=== PATIENT | male | born 1955 | race Asian ===

== ENCOUNTER 2019-02-10 14:20 | Inpatient (IN) | payer BC, OTHER ==
[~2019-02-10] VITALS: Ht 175.3 cm; Wt 120.0 kg
--- NOTE | 2019-02-10 15:09 | NUR ---
TRANSFER FOR ORTHO EVALUATION (SURGERY) PATIENT REPORTS GLF 4 DAYS AGO WITH RESULTING DEFORMITY TO RIGHT WRSIT/ELBOW PRESENTED TODAY FOR EVALUATION SENDING HOSPITAL PERFORMED PLACED SPLINT. BASIC LABS/PLACED 2 PIVS/GAVE 2 GM OF ANCEF- EMS GAVE 2MG OF MORPHINE IN DEVIDED DOSES CMS INTACT. ABLE TO WIGGLE FINGERS/RADIAL PULSE INTACT. REPORTS SENSORY 4/5 DRESSING TAKEN DOWN. EXPOSED BONE TO MEDIAL WRIST NOTED. BLEEDING CONTROLLED BRUSING FROM ELBOW TO WRIST. COMPARTMENTS SOFT. AFTER PHARMACY CUSTOMER CARE SPECIALIST/MD MEDINA. FOREARM SPLINT REPLACED AND GENTLY WRAPPED WITH ROBB WRAP
[2019-02-10] MEDS ORDERED: DIPHTHERIA-TETANUS ADULT 0.5ML IM-VACC ONE (15:30)
[2019-02-10] MEDS ORDERED: GENTAMICIN PER PHARMACY MC ONE (15:30)
[2019-02-10] MEDS ORDERED: MORPHINE SULFATE 4 MG/ML, 1ML IVPush PRN (15:30)
[2019-02-10] MEDS ORDERED: ONDANSETRON 2MG/ML, 2ML IVPush ONE (15:30)
[2019-02-10] MEDS ORDERED: PLEASE ENTER ALLERGIES MC SCH (15:30)
[2019-02-10] MEDS ORDERED: ONDANSETRON 2MG/ML, 2ML ONE (15:41)
[2019-02-10] MEDS ORDERED: MORPHINE SULFATE 4 MG/ML, 1ML ONE (15:42)
[2019-02-10] MEDS ORDERED: DIPH,PERTUSS(ACELL),TET VAC/PF 0.5 ML IM-VACC ONE (15:42)
--- NOTE | 2019-02-10 15:44 | NUR ---
XRAY AT BEDSIDE- [facility] EXAM UNCHANGED MEDICATED PER EMAR FOR PAIN AT 10/10 TO RUE
--- NOTE | 2019-02-10 15:45 | NUR ---
TDAP DEFERRED-HAD TDAP EARLIER THIS M[facility]ING AT [facility] REQUEST[facility] FROM PHARMACY
[2019-02-10 15:52] LABS: BASOPHILS # (AUTO) 0.02 x10^3/uL (0-0.1); BASOPHILS % (AUTO) 0 % (0-1); EOSINOPHILS # (AUTO) 0.19 x10^3/uL (0-0.4); EOSINOPHILS % (AUTO) 5 % (1-7); LYMPHOCYTES # (AUTO) 0.57 x10^3/uL (1-3.4); LYMPHOCYTES % (AUTO) 14 % (22-44); MD NO; MEAN CORPUSCULAR HEMOGLOBIN 32.1 pg (27.5-34.5); MEAN CORPUSCULAR HGB CONC 33.7 g/dL (33.2-36.2); MEAN CORPUSCULAR VOLUME 95.3 fL (81-97); MEAN PLATELET VOLUME 8.7 fL (7.4-10.4); MONOCYTES % (AUTO) 15 % (2-9); NEUTROPHILS # (AUTO) 2.55 x10^3/uL (1.8-6.8); NEUTROPHILS % (AUTO) 65 % (42-75); PLATELET COUNT 205 x10^3/uL (130-400); RED BLOOD COUNT 3.66 x10^6/uL (4.38-5.82); RED CELL DISTRIBUTION WIDTH 13.9 % (9.4-14.8)
[2019-02-10] MEDS ORDERED: ATEN50TA41 PO (15:52)
[2019-02-10] MEDS ORDERED: AMLO10TA8 PO (15:52)
[2019-02-10] MEDS ORDERED: TAMS-11 PO (15:52)
[2019-02-10] MEDS ORDERED: DULO20CA45 PO (15:52)
[2019-02-10] MEDS ORDERED: PREG25CA PO (15:52)
[2019-02-10] MEDS ORDERED: CYCL5TAB PO (15:52)
--- NOTE | 2019-02-10 15:53 | NUR ---
MED RECC UPDATED-PATIENT KNOWS THE NAMES OF LISTED MEDICINES. DAVIDE HE DOES NOT KNOW THE DOSES AND HE REPORT THAT HE MIGHT BE FORGETTING A MED OR TWO REPORTS HIM FILLS HIS MEDS AT THE [facility]
[2019-02-10 15:54] LABS: ANION GAP 8 mmol/L (5-15); CALCIUM 8.7 mg/dL (8.5-10.1); CHLORIDE 107 mmol/L (98-107); CREATININE 0.78 mg/dL (0.7-1.3)
[2019-02-10] MEDS ORDERED: PHARMACOKINETIC CONSULTATION MC ONE ×2 (16:00→19:30)
[2019-02-10] MEDS ORDERED: GENTAMICIN 360 MG in SODIUM CHLORIDE 0.9% 100 ML IV SCH (16:30)
[2019-02-10] MEDS ORDERED: HYDROmorphone 2 MG/ML, 1ML IV ONE (16:30)
[2019-02-10] MEDS ORDERED: SODIUM CHLORIDE 0.9%, 500ML IVBOLUS ONE (16:30)
--- NOTE | 2019-02-10 16:30 | NUR ---
poc clarified with provider (surgery time?) ER Provider has not had return page from orthopedist yet. To re-page Er provider asked for additional pain medicine (pain remains 11/06). no change in CMS exam. [address] as well
[2019-02-10 16:31] LABS: INTERNATIONAL NORMALIZED RATIO 0.98 (0.93-1.1); PROTHROMBIN TIME 10.3 Seconds (9.6-11.5)
[2019-02-10] MEDS ORDERED: POTASSIUM CHLORIDE 20 MEQ in SODIUM CHLORIDE 0.9% 250 ML IV ONE (17:00)
[2019-02-10] MEDS ORDERED: HYDROmorphone 1 MG/ML, 1ML VIAL ONE (17:04)
[2019-02-10] MEDS ORDERED: NS + 20MEQ KCL 1,000 ML IV ONE (17:25)
[2019-02-10] MEDS ORDERED: NS + 20MEQ KCL 1,000 ML IV SCH (17:30)
--- NOTE | 2019-02-10 17:45 | NUR ---
ATTEMPTED TO CALL REPORT. RN UNAVAILABLE
--- NOTE | 2019-02-10 17:59 | NUR ---
Report to Suzette LOVE Last meal yesterday afternoon (02/09/19) at roughly 1500pm Orthopedist called er provider back-to operate later this evening (keep NPO)
[2019-02-10] MEDS ORDERED: MIDAZOLAM 1 MG/ML, 5ML IVPush ONE (18:00)
--- NOTE | 2019-02-10 18:29 | NUR ---
Transported to floor by EMT ivf paused for tranport at [id number] patient's brother at bedside-reports patient also has right lower back pain which (related to fall that caused arm injury). Which he failed to report Will need md clark
[2019-02-10] MEDS ORDERED: VANCOMYCIN PER PHARMACY MC PRN (18:30)
[2019-02-10] MEDS ORDERED: BISACODYL 10 MG SUPP PR PRN (18:30)
[2019-02-10] MEDS ORDERED: ONDANSETRON 2MG/ML, 2ML IVPush PRN (18:30)
[2019-02-10] MEDS ORDERED: ASPI-496 PO (18:43)
[2019-02-10 18:56] VITALS: BP 108/73
[2019-02-10] MEDS ORDERED: VANCOMYCIN 2,500 MG in SODIUM CHLORIDE 0.9% 500 ML IV SCH (19:30)
[2019-02-10] MEDS ORDERED: PHARMACOKINETIC MONITORING MC PRN (19:30)
[2019-02-10] MEDS: NS + 40MEQ KCL 1,000 ML IV SCH (19:51)
[2019-02-10] MEDS: CEFAZOLIN 2,000 MG in SODIUM CHLORIDE 0.9% 50 ML IV SCH (20:04)
[2019-02-10] MEDS ORDERED: IBUP-1902 PO (20:13)
[2019-02-10] MEDS ORDERED: VANCOMYCIN 2,000 MG in SODIUM CHLORIDE 0.9% 500 ML IV SCH (21:00)
[2019-02-10] MEDS ORDERED: MIDAZOLAM 1 MG/ML, 2ML ONE (21:15)
[2019-02-10] MEDS ORDERED: FENTANYL PF 250 MCG/5ML ONE (21:15)
[2019-02-10] MEDS ORDERED: CEFAZOLIN 1,000 MG ONE (21:42)
[2019-02-10] MEDS ORDERED: PROPOFOL 10 MG/ML, 20ML ONE (21:42)
[2019-02-10] MEDS ORDERED: ROCURONIUM 10 MG/ML,10ML ONE (21:42)
[2019-02-10] MEDS ORDERED: ACETAMINOPHEN 325 MG TABLET PO PRN (22:00)
[2019-02-10] MEDS ORDERED: ONDANSETRON 2MG/ML, 2ML IV PRN (22:00)
[2019-02-10] MEDS ORDERED: hydrALAzine 20 MG/ML, 1ML IV PRN (22:00)
[2019-02-10] MEDS ORDERED: HYDROmorphone 2 MG/ML, 1ML IVPush PRN (22:00)
[2019-02-10] MEDS ORDERED: FENTANYL PF 100 MCG/2ML IV PRN (22:00)
[2019-02-10] MEDS ORDERED: LABETALOL 5MG/ML, 20ML IV PRN (22:00)
[2019-02-10] MEDS ORDERED: MEPERIDINE/PF 25MG/ML,1ML IVPush PRN (22:00)
[2019-02-10] MEDS ORDERED: BACITRACIN 50,000 UNIT ONE (22:04)
[2019-02-11] MEDS ORDERED: PROPOFOL 100 ML IV ONE (00:12)
[2019-02-11] MEDS ORDERED: LACTULOSE 20 GM/30 ML UDC NG PRN (00:30)
[2019-02-11] MEDS ORDERED: SENNA 176 MG/5 ML ORAL SOL NG PRN (00:30)
[2019-02-11] MEDS ORDERED: GLUCAGON 1 MG IM PRN (00:30)
[2019-02-11] MEDS ORDERED: DEXTROSE 50%, 50ML SYRINGE IVPush PRN (00:30)
[2019-02-11] MEDS ORDERED: BISACODYL 10 MG SUPP PR PRN (00:30)
[2019-02-11] MEDS ORDERED: LIDOCAINE-MPF 1%, 2ML ENDO PRN (00:30)
[2019-02-11] MEDS ORDERED: PHARMACY MAY ADJ FOR RENAL FX MC SCH (00:30)
[2019-02-11] MEDS ORDERED: DEXTROSE 4 GM TAB.CHEW PO PRN (00:30)
[2019-02-11] MEDS ORDERED: SENNA/DOCUSATE TABLET NG PRN (00:30)
[2019-02-11 01:00] VITALS: BP 130/76
[2019-02-11 01:03] LABS: ALANINE AMINOTRANSFERASE 24 U/L (12-78); ALBUMIN 2.7 g/dL (3.4-5.0); ANION GAP 7 mmol/L (5-15); CALCIUM 8.2 mg/dL (8.5-10.1); CHLORIDE 108 mmol/L (98-107); CREATININE 0.91 mg/dL (0.7-1.3)
[2019-02-11 01:06] LABS: ALKALINE PHOSPHATASE 84 U/L (45-117); BILIRUBIN,TOTAL 0.6 mg/dL (0.2-1.0); TOTAL PROTEIN 6.4 g/dL (6.4-8.2)
[2019-02-11] MEDS ORDERED: OMNIPAQUE 350 MG/ML, 100ML BOTTLE ONE (02:52)
[2019-02-11 03:17] LABS: MEAN CORPUSCULAR HEMOGLOBIN 31.9 pg (27.5-34.5); MEAN CORPUSCULAR HGB CONC 32.7 g/dL (33.2-36.2); MEAN CORPUSCULAR VOLUME 97.6 fL (81-97); MEAN PLATELET VOLUME 9.1 fL (7.4-10.4); PLATELET COUNT 191 x10^3/uL (130-400); RED BLOOD COUNT 3.58 x10^6/uL (4.38-5.82); RED CELL DISTRIBUTION WIDTH 14.4 % (9.4-14.8)
[2019-02-11 03:18] LABS: MD YES
[2019-02-11 03:20] LABS: ANISOCYTOSIS 1+; EOS#(MANUAL) 0.03 x10^3/uL (0.0-0.4); EOS% (MANUAL) 1 % (1-7); LYMPH#(MANUAL) 0.32 x10^3/uL (1-3.4); LYMPHS% (MANUAL) 10 % (22-44); MONOS#(MANUAL) 0.38 x10^3/uL (0.3-2.7); MONOS% (MANUAL) 12 % (2-9); POLYCHROMASIA 1+; SEG#(MANUAL) 2.46 x10^3/uL (1.8-6.8); SEGS% (MANUAL) 77 % (42-75)
[2019-02-11 03:21] LABS: <PLATELET ESTIMATE> ADEQUATE; <PLT MORPHOLOGY> NORMAL PLT MORPH
[2019-02-11 04:00] VITALS: BP 116/69
[2019-02-11] MEDS: PROPOFOL 100 ML IV PRN ×8 (04:31→21:37)
[2019-02-11] MEDS: NS + 40MEQ KCL 1,000 ML IV SCH (04:43)
[2019-02-11] MEDS: CEFAZOLIN 2,000 MG in SODIUM CHLORIDE 0.9% 50 ML IV SCH (04:58)
[2019-02-11] MEDS: MORPHINE SULFATE 4 MG/ML, 1ML IVPush PRN ×2 (04:58→08:52)
[2019-02-11] MEDS ORDERED: POTASSIUM CHLORIDE 10% 40 MEQ/30 ML UDC PO ONE (09:00)
--- NOTE | 2019-02-11 11:58 | NUR ---
TF GOAL if needed: with or without propofol: VITAL HIGH PROTEIN @ 70ML/HR
[2019-02-11] MEDS: POTASSIUM CHLORIDE 20 MEQ, MAGNESIUM SULFATE 1 GM, THIAMINE 200 MG, FOLIC ACID 1 MG, MV... IV SCH (12:30)
[2019-02-11] MEDS: SODIUM CHLORIDE FLUSH 10ML SYR IVF SCH ×2 (12:39→20:18)
[2019-02-11] MEDS: TAMSULOSIN 0.4 MG CAP.ER.24H PO SCH (12:39)
[2019-02-11] MEDS ORDERED: VANCOMYCIN 2,500 MG in SODIUM CHLORIDE 0.9% 500 ML IV ONE (13:00)
[2019-02-11] MEDS ORDERED: PICC FLUSH PROTOCOL XX PRN (16:00)
[2019-02-11] MEDS: DIAZEPAM 5 MG/ML, 2ML IV SCH ×3 (16:30→21:40)
[2019-02-11] MEDS ORDERED: MORPHINE SULFATE 4 MG/ML, 1ML ONE (20:14)
[2019-02-11] MEDS: morphine SULFATE 10 MG/ML, 1ML IVPush PRN (20:18)
[2019-02-12] MEDS: PROPOFOL 100 ML IV PRN ×7 (00:25→17:04)
[2019-02-12] MEDS: DIAZEPAM 5 MG/ML, 2ML IV SCH ×6 (02:03→21:11)
[2019-02-12 04:00] VITALS: BP 125/74
[2019-02-12 04:25] LABS: BASOPHILS # (AUTO) 0.01 x10^3/uL (0-0.1); BASOPHILS % (AUTO) 0 % (0-1); EOSINOPHILS # (AUTO) 0.19 x10^3/uL (0-0.4); EOSINOPHILS % (AUTO) 6 % (1-7); LYMPHOCYTES # (AUTO) 0.46 x10^3/uL (1-3.4); LYMPHOCYTES % (AUTO) 14 % (22-44); MD NO; MEAN CORPUSCULAR HEMOGLOBIN 32.4 pg (27.5-34.5); MEAN CORPUSCULAR HGB CONC 33.3 g/dL (33.2-36.2); MEAN CORPUSCULAR VOLUME 97.3 fL (81-97); MEAN PLATELET VOLUME 8.9 fL (7.4-10.4); MONOCYTES # (AUTO) 0.61 x10^3/uL (0.2-0.8); MONOCYTES % (AUTO) 19 % (2-9); NEUTROPHILS % (AUTO) 61 % (42-75); PLATELET COUNT 185 x10^3/uL (130-400); RED BLOOD COUNT 3.13 x10^6/uL (4.38-5.82); RED CELL DISTRIBUTION WIDTH 14.1 % (9.4-14.8)
[2019-02-12 04:28] LABS: ANION GAP 6 mmol/L (5-15); CHLORIDE 109 mmol/L (98-107); CREATININE 0.56 mg/dL (0.7-1.3)
[2019-02-12] MEDS ORDERED: VANCOMYCIN 2,000 MG in SODIUM CHLORIDE 0.9% 500 ML IV SCH (06:00)
[2019-02-12] MEDS ORDERED: POTASSIUM CHLORIDE 10% 20 MEQ/15 ML UDC PO ONE (07:00)
[2019-02-12] MEDS: TAMSULOSIN 0.4 MG CAP.ER.24H PO SCH (08:01)
[2019-02-12] MEDS: SODIUM CHLORIDE FLUSH 10ML SYR IVF SCH ×2 (08:02→19:14)
[2019-02-12] MEDS: POTASSIUM CHLORIDE 20 MEQ, MAGNESIUM SULFATE 1 GM, THIAMINE 200 MG, FOLIC ACID 1 MG, MV... IV SCH (09:03)
[2019-02-12] MEDS: PIPERACILLIN/TAZO/PMX 3.375GM 50 ML IV SCH ×3 (11:22→22:42)
[2019-02-12] MEDS ORDERED: VANCOMYCIN PER PHARMACY MC PRN (12:00)
[2019-02-12] MEDS ORDERED: PHARMACOKINETIC MONITORING MC PRN (12:00)
[2019-02-12] MEDS ORDERED: CEFTAROLINE 600 MG in SODIUM CHLORIDE 0.9% 100 ML IV SCH (12:00)
[2019-02-12] MEDS: METOCLOPRAMIDE 5 MG/ML, 2ML IVPush SCH ×2 (16:16→22:35)
[2019-02-12] MEDS ORDERED: MORPHINE SULFATE 4 MG/ML, 1ML ONE (19:10)
[2019-02-12] MEDS: morphine SULFATE 10 MG/ML, 1ML IVPush PRN (19:12)
[2019-02-13] MEDS ORDERED: VANCOMYCIN 2,000 MG in SODIUM CHLORIDE 0.9% 500 ML IV SCH
[2019-02-13] MEDS: PROPOFOL 100 ML IV PRN ×5 (00:48→16:21)
[2019-02-13] MEDS: DIAZEPAM 5 MG/ML, 2ML IV SCH ×3 (00:53→08:44)
[2019-02-13 04:00] VITALS: BP 123/72
[2019-02-13] MEDS: METOCLOPRAMIDE 5 MG/ML, 2ML IVPush SCH ×4 (05:06→23:06)
[2019-02-13] MEDS: PIPERACILLIN/TAZO/PMX 3.375GM 50 ML IV SCH ×4 (05:07→23:06)
[2019-02-13 08:02] LABS: BASOPHILS # (AUTO) 0.01 x10^3/uL (0-0.1); BASOPHILS % (AUTO) 0 % (0-1); EOSINOPHILS # (AUTO) 0.18 x10^3/uL (0-0.4); EOSINOPHILS % (AUTO) 6 % (1-7); LYMPHOCYTES # (AUTO) 0.45 x10^3/uL (1-3.4); LYMPHOCYTES % (AUTO) 14 % (22-44); MD NO; MEAN CORPUSCULAR HEMOGLOBIN 31.7 pg (27.5-34.5); MEAN CORPUSCULAR HGB CONC 33.4 g/dL (33.2-36.2); MEAN CORPUSCULAR VOLUME 94.8 fL (81-97); MEAN PLATELET VOLUME 8.4 fL (7.4-10.4); MONOCYTES # (AUTO) 0.58 x10^3/uL (0.2-0.8); MONOCYTES % (AUTO) 18 % (2-9); NEUTROPHILS # (AUTO) 2.08 x10^3/uL (1.8-6.8); NEUTROPHILS % (AUTO) 63 % (42-75); PLATELET COUNT 202 x10^3/uL (130-400); RED BLOOD COUNT 3.15 x10^6/uL (4.38-5.82)
[2019-02-13 08:08] LABS: ALBUMIN 2.1 g/dL (3.4-5.0); ANION GAP 8 mmol/L (5-15); CALCIUM 7.9 mg/dL (8.5-10.1); CHLORIDE 110 mmol/L (98-107); CREATININE 0.56 mg/dL (0.7-1.3)
[2019-02-13] MEDS ORDERED: POTASSIUM CHLORIDE 20 MEQ PACKET PO ONE (08:30)
[2019-02-13] MEDS: SODIUM CHLORIDE FLUSH 10ML SYR IVF SCH ×2 (08:44→20:07)
[2019-02-13] MEDS: TAMSULOSIN 0.4 MG CAP.ER.24H PO SCH (08:44)
[2019-02-13] MEDS: FENTANYL PF 100 MCG/2ML IVPush PRN (09:26)
[2019-02-13] MEDS: FOLIC ACID 1 MG TABLET PO SCH (10:58)
[2019-02-13] MEDS: THIAMINE 100MG TABLET GT SCH (10:58)
[2019-02-13] MEDS: MULTIVIT-MINERALS/IRON ORAL SOL GT SCH (10:59)
[2019-02-13] MEDS: DIAZEPAM 5 MG TABLET PO SCH ×2 (14:03→20:07)
[2019-02-13] MEDS: D5%-0.45NACL+KCL 20MEQ 1,000 ML IV SCH (17:16)
[2019-02-14] MEDS: PROPOFOL 100 ML IV PRN ×6 (00:01→22:32)
[2019-02-14] MEDS: DIAZEPAM 5 MG TABLET PO SCH ×3 (02:16→17:32)
[2019-02-14 04:13] LABS: BASOPHILS % (AUTO) 0 % (0-1); EOSINOPHILS # (AUTO) 0.21 x10^3/uL (0-0.4); EOSINOPHILS % (AUTO) 5 % (1-7); LYMPHOCYTES % (AUTO) 10 % (22-44); MD NO; MEAN CORPUSCULAR HEMOGLOBIN 31.8 pg (27.5-34.5); MEAN CORPUSCULAR HGB CONC 33.1 g/dL (33.2-36.2); MEAN CORPUSCULAR VOLUME 96.1 fL (81-97); MEAN PLATELET VOLUME 8.2 fL (7.4-10.4); MONOCYTES # (AUTO) 0.61 x10^3/uL (0.2-0.8); MONOCYTES % (AUTO) 16 % (2-9); NEUTROPHILS # (AUTO) 2.72 x10^3/uL (1.8-6.8); NEUTROPHILS % (AUTO) 69 % (42-75); PLATELET COUNT 232 x10^3/uL (130-400); RED BLOOD COUNT 3.44 x10^6/uL (4.38-5.82); RED CELL DISTRIBUTION WIDTH 14.2 % (9.4-14.8)
[2019-02-14 04:23] LABS: ANION GAP 4 mmol/L (5-15); CALCIUM 8.2 mg/dL (8.5-10.1); CHLORIDE 110 mmol/L (98-107); CREATININE 0.61 mg/dL (0.7-1.3); TRIGLYCERIDES 290 mg/dL (50-200)
[2019-02-14 04:26] LABS: PREALBUMIN 10.1 mg/dL (20.0-40.0)
[2019-02-14] MEDS: METOCLOPRAMIDE 5 MG/ML, 2ML IVPush SCH ×4 (04:34→22:40)
[2019-02-14] MEDS: PIPERACILLIN/TAZO/PMX 3.375GM 50 ML IV SCH ×4 (04:35→22:40)
[2019-02-14] MEDS: D5%-0.45NACL+KCL 20MEQ 1,000 ML IV SCH (06:15)
[2019-02-14] MEDS ORDERED: MAGNESIUM SULFATE PMX 2GM/50ML 50 ML IV ONE (07:00)
[2019-02-14] MEDS ORDERED: POTASSIUM CHLORIDE 10% 20 MEQ/15 ML UDC PO ONE (07:00)
[2019-02-14] MEDS: SODIUM CHLORIDE FLUSH 10ML SYR IVF SCH ×2 (09:00→21:26)
[2019-02-14] MEDS: THIAMINE 100MG TABLET GT SCH (09:27)
[2019-02-14] MEDS: FOLIC ACID 1 MG TABLET PO SCH (09:27)
[2019-02-14] MEDS: TAMSULOSIN 0.4 MG CAP.ER.24H PO SCH (09:27)
[2019-02-14] MEDS: MULTIVIT-MINERALS/IRON ORAL SOL GT SCH (09:28)
[2019-02-14] MEDS ORDERED: ENOXAPARIN 40 MG/0.4 ML ONE (09:29)
[2019-02-14] MEDS ORDERED: METOPROLOL TARTRATE 25 MG TABLET ONE (09:29)
[2019-02-14] MEDS: METOPROLOL TARTRATE 25 MG TABLET PO SCH ×2 (09:31→21:26)
[2019-02-14] MEDS: ENOXAPARIN 40 MG/0.4 ML SQ SCH (09:31)
[2019-02-14] MEDS ORDERED: FUROSEMIDE 40 MG/4 ML IV ONE (10:00)
[2019-02-14] MEDS: FENTANYL PF 100 MCG/2ML IVPush PRN (13:14)
[2019-02-15] MEDS: DIAZEPAM 5 MG TABLET PO SCH ×3 (02:25→17:38)
[2019-02-15] MEDS: PROPOFOL 100 ML IV PRN ×5 (03:31→21:43)
[2019-02-15 04:35] LABS: BASOPHILS # (AUTO) 0.01 x10^3/uL (0-0.1); BASOPHILS % (AUTO) 0 % (0-1); EOSINOPHILS # (AUTO) 0.23 x10^3/uL (0-0.4); EOSINOPHILS % (AUTO) 6 % (1-7); LYMPHOCYTES # (AUTO) 0.47 x10^3/uL (1-3.4); LYMPHOCYTES % (AUTO) 11 % (22-44); MD NO; MEAN CORPUSCULAR HEMOGLOBIN 31.7 pg (27.5-34.5); MEAN CORPUSCULAR HGB CONC 33.2 g/dL (33.2-36.2); MEAN CORPUSCULAR VOLUME 95.6 fL (81-97); MEAN PLATELET VOLUME 8.3 fL (7.4-10.4); MONOCYTES % (AUTO) 14 % (2-9); NEUTROPHILS # (AUTO) 2.87 x10^3/uL (1.8-6.8); NEUTROPHILS % (AUTO) 69 % (42-75); PLATELET COUNT 259 x10^3/uL (130-400); RED BLOOD COUNT 3.51 x10^6/uL (4.38-5.82); RED CELL DISTRIBUTION WIDTH 13.9 % (9.4-14.8)
[2019-02-15 04:47] LABS: ANION GAP 6 mmol/L (5-15); CALCIUM 8.7 mg/dL (8.5-10.1); CHLORIDE 105 mmol/L (98-107); CREATININE 0.66 mg/dL (0.7-1.3)
[2019-02-15] MEDS: PIPERACILLIN/TAZO/PMX 3.375GM 50 ML IV SCH ×4 (04:55→22:47)
[2019-02-15] MEDS: METOCLOPRAMIDE 5 MG/ML, 2ML IVPush SCH (04:55)
[2019-02-15] MEDS ORDERED: POTASSIUM CHLORIDE 10% 20 MEQ/15 ML UDC PO ONE (08:30)
[2019-02-15] MEDS: SODIUM CHLORIDE FLUSH 10ML SYR IVF SCH ×2 (09:00→21:42)
[2019-02-15] MEDS: ENOXAPARIN 40 MG/0.4 ML SQ SCH (09:00)
[2019-02-15] MEDS: TAMSULOSIN 0.4 MG CAP.ER.24H PO SCH (09:32)
[2019-02-15] MEDS: OXYcodone 5 MG/5 ML ORAL.SOL UDC PO PRN (09:32)
[2019-02-15] MEDS: POTASSIUM CHLORIDE 20 MEQ TAB.ER.PRT PO SCH (09:32)
[2019-02-15] MEDS: MULTIVIT-MINERALS/IRON ORAL SOL GT SCH (09:33)
[2019-02-15] MEDS: FOLIC ACID 1 MG TABLET PO SCH (09:33)
[2019-02-15] MEDS: THIAMINE 100MG TABLET GT SCH (09:33)
[2019-02-15] MEDS: METOPROLOL TARTRATE 25 MG TABLET PO SCH ×2 (09:35→17:38)
[2019-02-15 14:24] LABS: ANION GAP 4 mmol/L (5-15); CALCIUM 8.1 mg/dL (8.5-10.1); CHLORIDE 104 mmol/L (98-107); CREATININE 0.65 mg/dL (0.7-1.3)
[2019-02-15] MEDS ORDERED: POTASSIUM CHLORIDE PMX 100 ML IV ONE (15:00)
[2019-02-16] MEDS: DIAZEPAM 5 MG TABLET PO SCH ×2 (02:05→14:13)
[2019-02-16] MEDS: METOPROLOL TARTRATE 25 MG TABLET PO SCH ×3 (02:07→16:53)
[2019-02-16] MEDS: PROPOFOL 100 ML IV PRN ×4 (02:07→20:47)
[2019-02-16] MEDS: PIPERACILLIN/TAZO/PMX 3.375GM 50 ML IV SCH ×4 (05:08→23:09)
[2019-02-16 05:16] LABS: BASOPHILS # (AUTO) 0.01 x10^3/uL (0-0.1); BASOPHILS % (AUTO) 0 % (0-1); EOSINOPHILS # (AUTO) 0.22 x10^3/uL (0-0.4); EOSINOPHILS % (AUTO) 6 % (1-7); LYMPHOCYTES # (AUTO) 0.46 x10^3/uL (1-3.4); LYMPHOCYTES % (AUTO) 13 % (22-44); MD NO; MEAN CORPUSCULAR HEMOGLOBIN 31.2 pg (27.5-34.5); MEAN CORPUSCULAR HGB CONC 32.9 g/dL (33.2-36.2); MEAN CORPUSCULAR VOLUME 94.8 fL (81-97); MEAN PLATELET VOLUME 7.9 fL (7.4-10.4); MONOCYTES # (AUTO) 0.56 x10^3/uL (0.2-0.8); MONOCYTES % (AUTO) 16 % (2-9); NEUTROPHILS % (AUTO) 65 % (42-75); PLATELET COUNT 245 x10^3/uL (130-400); RED BLOOD COUNT 3.46 x10^6/uL (4.38-5.82); RED CELL DISTRIBUTION WIDTH 13.9 % (9.4-14.8)
[2019-02-16 05:27] LABS: ANION GAP 2 mmol/L (5-15); CALCIUM 8.4 mg/dL (8.5-10.1); CHLORIDE 106 mmol/L (98-107); CREATININE 0.67 mg/dL (0.7-1.3)
[2019-02-16] MEDS: THIAMINE 100MG TABLET GT SCH (08:52)
[2019-02-16] MEDS: FOLIC ACID 1 MG TABLET PO SCH (08:52)
[2019-02-16] MEDS: TAMSULOSIN 0.4 MG CAP.ER.24H PO SCH (08:53)
[2019-02-16] MEDS: ENOXAPARIN 40 MG/0.4 ML SQ SCH (08:53)
[2019-02-16] MEDS: POTASSIUM CHLORIDE 20 MEQ TAB.ER.PRT PO SCH ×2 (08:53→16:53)
[2019-02-16] MEDS: SODIUM CHLORIDE FLUSH 10ML SYR IVF SCH ×2 (08:54→21:11)
[2019-02-16] MEDS: MULTIVIT-MINERALS/IRON ORAL SOL GT SCH (08:59)
[2019-02-16] MEDS: FAMOTIDINE 20 MG/2 ML IVPush SCH ×2 (09:02→21:11)
[2019-02-16] MEDS ORDERED: FUROSEMIDE 40 MG/4 ML ONE (09:26)
[2019-02-16] MEDS: FUROSEMIDE 40 MG/4 ML IV SCH (11:20)
[2019-02-16] MEDS: morphine SULFATE 10 MG/ML, 1ML IVPush PRN (13:44)
[2019-02-17] MEDS: FENTANYL PF 100 MCG/2ML IVPush PRN ×2 (01:30→09:00)
[2019-02-17] MEDS: DIAZEPAM 5 MG TABLET PO SCH (02:00)
[2019-02-17] MEDS: METOPROLOL TARTRATE 25 MG TABLET PO SCH ×3 (02:32→17:24)
[2019-02-17] MEDS: PROPOFOL 100 ML IV PRN ×4 (03:15→22:30)
[2019-02-17] MEDS: PIPERACILLIN/TAZO/PMX 3.375GM 50 ML IV SCH ×4 (04:45→23:00)
[2019-02-17 05:29] LABS: CHLORIDE 106 mmol/L (98-107)
[2019-02-17 05:32] LABS: BASOPHILS # (AUTO) 0.01 x10^3/uL (0-0.1); BASOPHILS % (AUTO) 0 % (0-1); EOSINOPHILS # (AUTO) 0.21 x10^3/uL (0-0.4); EOSINOPHILS % (AUTO) 5 % (1-7); LYMPHOCYTES # (AUTO) 0.62 x10^3/uL (1-3.4); LYMPHOCYTES % (AUTO) 14 % (22-44); MD NO; MEAN CORPUSCULAR HEMOGLOBIN 31.6 pg (27.5-34.5); MEAN CORPUSCULAR HGB CONC 33.3 g/dL (33.2-36.2); MEAN CORPUSCULAR VOLUME 94.8 fL (81-97); MEAN PLATELET VOLUME 8.4 fL (7.4-10.4); MONOCYTES # (AUTO) 0.68 x10^3/uL (0.2-0.8); MONOCYTES % (AUTO) 16 % (2-9); NEUTROPHILS # (AUTO) 2.83 x10^3/uL (1.8-6.8); NEUTROPHILS % (AUTO) 65 % (42-75); PLATELET COUNT 258 x10^3/uL (130-400); RED BLOOD COUNT 3.69 x10^6/uL (4.38-5.82)
[2019-02-17 05:43] LABS: ANION GAP 4 mmol/L (5-15); CALCIUM 8.8 mg/dL (8.5-10.1); CREATININE 0.74 mg/dL (0.7-1.3); TRIGLYCERIDES 298 mg/dL (50-200)
[2019-02-17] MEDS ORDERED: BUPIVACAINE/EPI 0.5% 1:200K ONE (07:05)
[2019-02-17] MEDS: FOLIC ACID 1 MG TABLET PO SCH (07:30)
[2019-02-17] MEDS: TAMSULOSIN 0.4 MG CAP.ER.24H PO SCH (07:30)
[2019-02-17] MEDS: THIAMINE 100MG TABLET GT SCH (07:30)
[2019-02-17] MEDS: POTASSIUM CHLORIDE 20 MEQ TAB.ER.PRT PO SCH (07:30)
[2019-02-17] MEDS: MULTIVIT-MINERALS/IRON ORAL SOL GT SCH (07:30)
[2019-02-17] MEDS ORDERED: FENTANYL PF 250 MCG/5ML ONE (07:38)
[2019-02-17] MEDS: FAMOTIDINE 20 MG/2 ML IVPush SCH ×2 (08:59→21:00)
[2019-02-17] MEDS: FUROSEMIDE 40 MG/4 ML IV SCH (08:59)
[2019-02-17] MEDS ORDERED: DIAZEPAM 5 MG TABLET PO ONE (09:00)
[2019-02-17] MEDS: SODIUM CHLORIDE FLUSH 10ML SYR IVF SCH ×2 (09:01→21:00)
[2019-02-17] MEDS: POTASSIUM CHLORIDE 10% 40 MEQ/30 ML UDC PO SCH (21:00)
[2019-02-18] MEDS: METOPROLOL TARTRATE 25 MG TABLET PO SCH ×3 (01:30→16:38)
[2019-02-18 04:45] LABS: BASOPHILS # (AUTO) 0.01 x10^3/uL (0-0.1); BASOPHILS % (AUTO) 0 % (0-1); EOSINOPHILS % (AUTO) 5 % (1-7); LYMPHOCYTES # (AUTO) 0.81 x10^3/uL (1-3.4); LYMPHOCYTES % (AUTO) 14 % (22-44); MD NO; MEAN CORPUSCULAR HEMOGLOBIN 31.5 pg (27.5-34.5); MEAN CORPUSCULAR HGB CONC 32.7 g/dL (33.2-36.2); MEAN CORPUSCULAR VOLUME 96.3 fL (81-97); MEAN PLATELET VOLUME 8.5 fL (7.4-10.4); MONOCYTES # (AUTO) 0.66 x10^3/uL (0.2-0.8); MONOCYTES % (AUTO) 12 % (2-9); NEUTROPHILS # (AUTO) 3.93 x10^3/uL (1.8-6.8); NEUTROPHILS % (AUTO) 69 % (42-75); PLATELET COUNT 281 x10^3/uL (130-400); RED BLOOD COUNT 3.87 x10^6/uL (4.38-5.82)
[2019-02-18 04:54] LABS: ANION GAP 3 mmol/L (5-15); CHLORIDE 104 mmol/L (98-107); CREATININE 0.78 mg/dL (0.7-1.3)
[2019-02-18] MEDS: PIPERACILLIN/TAZO/PMX 3.375GM 50 ML IV SCH ×4 (05:06→22:59)
[2019-02-18] MEDS: PROPOFOL 100 ML IV PRN ×4 (05:09→22:59)
[2019-02-18] MEDS ORDERED: ENOXAPARIN 40 MG/0.4 ML SQ ONE (09:00)
[2019-02-18] MEDS: POTASSIUM CHLORIDE 10% 40 MEQ/30 ML UDC PO SCH ×2 (09:00→19:31)
[2019-02-18] MEDS: FAMOTIDINE 20 MG/2 ML IVPush SCH ×2 (09:01→19:31)
[2019-02-18] MEDS: TAMSULOSIN 0.4 MG CAP.ER.24H PO SCH (09:01)
[2019-02-18] MEDS: FUROSEMIDE 40 MG/4 ML IV SCH (09:02)
[2019-02-18] MEDS: MULTIVIT-MINERALS/IRON ORAL SOL GT SCH (09:04)
[2019-02-18] MEDS: FOLIC ACID 1 MG TABLET PO SCH (09:04)
[2019-02-18] MEDS: SODIUM CHLORIDE FLUSH 10ML SYR IVF SCH ×2 (09:05→19:31)
[2019-02-18] MEDS: THIAMINE 100MG TABLET GT SCH (09:05)
[2019-02-18] MEDS: FENTANYL PF 100 MCG/2ML IVPush PRN (20:50)
[2019-02-18] MEDS: ACETAMINOPHEN 325 MG TABLET PO PRN (22:59)
[2019-02-19] MEDS: METOPROLOL TARTRATE 25 MG TABLET PO SCH ×3 (01:35→18:10)
[2019-02-19] MEDS: PROPOFOL 100 ML IV PRN ×2 (02:36→20:43)
[2019-02-19] MEDS: PIPERACILLIN/TAZO/PMX 3.375GM 50 ML IV SCH ×4 (04:47→23:52)
[2019-02-19 06:14] LABS: MEAN CORPUSCULAR HEMOGLOBIN 31.6 pg (27.5-34.5); MEAN CORPUSCULAR HGB CONC 32.7 g/dL (33.2-36.2); MEAN CORPUSCULAR VOLUME 96.8 fL (81-97); MEAN PLATELET VOLUME 9.7 fL (7.4-10.4); PLATELET COUNT 266 x10^3/uL (130-400); RED BLOOD COUNT 3.98 x10^6/uL (4.38-5.82); RED CELL DISTRIBUTION WIDTH 14.3 % (9.4-14.8)
[2019-02-19 06:23] LABS: ANION GAP 5 mmol/L (5-15); CALCIUM 9.1 mg/dL (8.5-10.1); CHLORIDE 105 mmol/L (98-107); CREATININE 0.79 mg/dL (0.7-1.3)
[2019-02-19 06:33] LABS: MD SCAN
[2019-02-19 06:34] LABS: BASOPHILS # (AUTO) 0.02 x10^3/uL (0-0.1); BASOPHILS % (AUTO) 0 % (0-1); EOSINOPHILS # (AUTO) 0.34 x10^3/uL (0-0.4); EOSINOPHILS % (AUTO) 5 % (1-7); LYMPHOCYTES % (AUTO) 14 % (22-44); MONOCYTES # (AUTO) 0.77 x10^3/uL (0.2-0.8); MONOCYTES % (AUTO) 11 % (2-9); NEUTROPHILS # (AUTO) 4.84 x10^3/uL (1.8-6.8); NEUTROPHILS % (AUTO) 70 % (42-75)
[2019-02-19] MEDS ORDERED: MIDAZOLAM 1 MG/ML, 2ML ONE (07:53)
[2019-02-19] MEDS ORDERED: FENTANYL PF 250 MCG/5ML ONE ×2 (07:54→09:54)
[2019-02-19] MEDS ORDERED: PROPOFOL 100 ML ONE ×2 (08:32→09:55)
[2019-02-19] MEDS ORDERED: PROPOFOL 50 ML ONE ×2 (09:18→11:33)
[2019-02-19] MEDS ORDERED: ROCURONIUM 10MG/ML,5ML ONE (12:13)
[2019-02-19] MEDS ORDERED: DEXAMETHASONE 4 MG/ML, 1ML ONE (12:13)
[2019-02-19] MEDS ORDERED: NEOSTIGMINE 1 MG/ML, 10ML ONE (12:13)
[2019-02-19] MEDS ORDERED: SUCCINYLCHOLINE 20 MG/ML, 10ML ONE (12:13)
[2019-02-19] MEDS ORDERED: CEFAZOLIN 1,000 MG ONE (12:13)
[2019-02-19] MEDS ORDERED: PROPOFOL 10 MG/ML, 20ML ONE (12:13)
[2019-02-19] MEDS ORDERED: ONDANSETRON 2MG/ML, 2ML ONE (12:13)
[2019-02-19] MEDS ORDERED: GLYCOPYRROLATE 0.2MG/1ML, 5ML ONE (12:13)
[2019-02-19] MEDS: FUROSEMIDE 40 MG/4 ML IV SCH (13:36)
[2019-02-19] MEDS: MULTIVIT-MINERALS/IRON ORAL SOL GT SCH (13:37)
[2019-02-19] MEDS: FOLIC ACID 1 MG TABLET PO SCH (13:37)
[2019-02-19] MEDS: TAMSULOSIN 0.4 MG CAP.ER.24H PO SCH (13:37)
[2019-02-19] MEDS: FAMOTIDINE 20 MG/2 ML IVPush SCH ×2 (13:37→19:39)
[2019-02-19] MEDS: POTASSIUM CHLORIDE 10% 40 MEQ/30 ML UDC PO SCH ×2 (13:37→19:39)
[2019-02-19] MEDS: THIAMINE 100MG TABLET GT SCH (13:37)
[2019-02-19] MEDS: SODIUM CHLORIDE FLUSH 10ML SYR IVF SCH ×2 (13:38→19:40)
[2019-02-19] MEDS ORDERED: GADOTERATE 10 MMOL/20 ML SYR ONE (17:29)
[2019-02-19] MEDS ORDERED: GADOTERATE 5 MMOL/10 ML VIAL ONE (17:29)
[2019-02-19] MEDS: ACETAMINOPHEN 325 MG TABLET PO PRN (18:10)
[2019-02-19] MEDS: FENTANYL PF 100 MCG/2ML IVPush PRN (19:49)
[2019-02-20] MEDS: ACETAMINOPHEN 325 MG TABLET PO PRN ×2 (01:02→12:01)
[2019-02-20] MEDS: METOPROLOL TARTRATE 25 MG TABLET PO SCH ×3 (01:02→17:57)
[2019-02-20] MEDS: PROPOFOL 100 ML IV PRN ×2 (03:11→20:57)
[2019-02-20 03:49] LABS: ANION GAP 4 mmol/L (5-15); CALCIUM 8.9 mg/dL (8.5-10.1); CHLORIDE 105 mmol/L (98-107); CREATININE 0.85 mg/dL (0.7-1.3); TRIGLYCERIDES 232 mg/dL (50-200)
[2019-02-20 03:50] LABS: BASOPHILS # (AUTO) 0.02 x10^3/uL (0-0.1); BASOPHILS % (AUTO) 0 % (0-1); EOSINOPHILS # (AUTO) 0.24 x10^3/uL (0-0.4); EOSINOPHILS % (AUTO) 2 % (1-7); LYMPHOCYTES # (AUTO) 0.89 x10^3/uL (1-3.4); LYMPHOCYTES % (AUTO) 9 % (22-44); MD NO; MEAN CORPUSCULAR HEMOGLOBIN 31.4 pg (27.5-34.5); MEAN CORPUSCULAR HGB CONC 32.8 g/dL (33.2-36.2); MEAN CORPUSCULAR VOLUME 95.8 fL (81-97); MEAN PLATELET VOLUME 9.6 fL (7.4-10.4); MONOCYTES # (AUTO) 1.09 x10^3/uL (0.2-0.8); MONOCYTES % (AUTO) 11 % (2-9); NEUTROPHILS # (AUTO) 7.58 x10^3/uL (1.8-6.8); NEUTROPHILS % (AUTO) 77 % (42-75); PLATELET COUNT 301 x10^3/uL (130-400); RED BLOOD COUNT 3.97 x10^6/uL (4.38-5.82); RED CELL DISTRIBUTION WIDTH 13.8 % (9.4-14.8)
[2019-02-20] MEDS: PIPERACILLIN/TAZO/PMX 3.375GM 50 ML IV SCH ×3 (04:54→17:57)
[2019-02-20] MEDS ORDERED: PHARMACOKINETIC MONITORING MC PRN (07:30)
[2019-02-20] MEDS ORDERED: VANCOMYCIN PER PHARMACY MC PRN (07:30)
[2019-02-20] MEDS: THIAMINE 100MG TABLET GT SCH (09:11)
[2019-02-20] MEDS: VANCOMYCIN 2,000 MG in SODIUM CHLORIDE 0.9% 500 ML IV SCH (09:11)
[2019-02-20] MEDS: FAMOTIDINE 20 MG/2 ML IVPush SCH ×2 (09:12→20:56)
[2019-02-20] MEDS: FOLIC ACID 1 MG TABLET PO SCH (09:12)
[2019-02-20] MEDS: FUROSEMIDE 40 MG/4 ML IV SCH (09:12)
[2019-02-20] MEDS: TAMSULOSIN 0.4 MG CAP.ER.24H PO SCH (09:12)
[2019-02-20] MEDS: POTASSIUM CHLORIDE 10% 40 MEQ/30 ML UDC PO SCH ×2 (09:12→20:56)
[2019-02-20] MEDS: SODIUM CHLORIDE FLUSH 10ML SYR IVF SCH ×2 (09:13→20:56)
[2019-02-20] MEDS: MULTIVIT-MINERALS/IRON ORAL SOL GT SCH (12:01)
[2019-02-21] MEDS: PIPERACILLIN/TAZO/PMX 3.375GM 50 ML IV SCH ×4 (00:34→17:38)
[2019-02-21] MEDS: VANCOMYCIN 2,000 MG in SODIUM CHLORIDE 0.9% 500 ML IV SCH ×2 (02:05→19:40)
[2019-02-21] MEDS: METOPROLOL TARTRATE 25 MG TABLET PO SCH ×3 (02:05→17:38)
[2019-02-21 05:47] LABS: CALCIUM 8.9 mg/dL (8.5-10.1); CHLORIDE 106 mmol/L (98-107)
[2019-02-21 05:55] LABS: ANION GAP 2 mmol/L (5-15)
[2019-02-21] MEDS: PROPOFOL 100 ML IV PRN (06:05)
[2019-02-21 06:13] LABS: BASOPHILS # (AUTO) 0.02 x10^3/uL (0-0.1); BASOPHILS % (AUTO) 0 % (0-1); EOSINOPHILS # (AUTO) 0.29 x10^3/uL (0-0.4); EOSINOPHILS % (AUTO) 4 % (1-7); LYMPHOCYTES # (AUTO) 0.92 x10^3/uL (1-3.4); LYMPHOCYTES % (AUTO) 12 % (22-44); MD NO; MEAN CORPUSCULAR HEMOGLOBIN 31.3 pg (27.5-34.5); MEAN CORPUSCULAR HGB CONC 32.8 g/dL (33.2-36.2); MEAN CORPUSCULAR VOLUME 95.4 fL (81-97); MEAN PLATELET VOLUME 9.9 fL (7.4-10.4); MONOCYTES # (AUTO) 0.92 x10^3/uL (0.2-0.8); MONOCYTES % (AUTO) 12 % (2-9); NEUTROPHILS # (AUTO) 5.47 x10^3/uL (1.8-6.8); NEUTROPHILS % (AUTO) 72 % (42-75); PLATELET COUNT 263 x10^3/uL (130-400); RED BLOOD COUNT 3.67 x10^6/uL (4.38-5.82); RED CELL DISTRIBUTION WIDTH 14.1 % (9.4-14.8)
[2019-02-21] MEDS: FOLIC ACID 1 MG TABLET PO SCH (09:36)
[2019-02-21] MEDS: THIAMINE 100MG TABLET GT SCH (09:37)
[2019-02-21] MEDS: TAMSULOSIN 0.4 MG CAP.ER.24H PO SCH (09:37)
[2019-02-21] MEDS: FUROSEMIDE 40 MG/4 ML IV SCH (09:40)
[2019-02-21] MEDS: POTASSIUM CHLORIDE 10% 40 MEQ/30 ML UDC PO SCH ×2 (09:41→21:18)
[2019-02-21] MEDS: FAMOTIDINE 20 MG/2 ML IVPush SCH ×2 (09:41→21:18)
[2019-02-21] MEDS: MULTIVIT-MINERALS/IRON ORAL SOL GT SCH (09:42)
[2019-02-21] MEDS: OXYcodone 5 MG/5 ML ORAL.SOL UDC PO PRN (09:47)
[2019-02-21] MEDS: SODIUM CHLORIDE FLUSH 10ML SYR IVF SCH ×2 (09:53→21:18)
[2019-02-21] MEDS ORDERED: LIDOCAINE 1%, 10ML ONE (13:30)
[2019-02-21] MEDS: FENTANYL PF 100 MCG/2ML IVPush PRN (19:41)
[2019-02-22] MEDS: PIPERACILLIN/TAZO/PMX 3.375GM 50 ML IV SCH ×4 (00:27→18:36)
[2019-02-22] MEDS: METOPROLOL TARTRATE 25 MG TABLET PO SCH ×2 (01:24→08:11)
[2019-02-22] MEDS: OXYcodone 5 MG/5 ML ORAL.SOL UDC PO PRN ×2 (01:25→21:13)
[2019-02-22] MEDS: FENTANYL PF 100 MCG/2ML IVPush PRN ×2 (01:25→19:09)
[2019-02-22 05:51] LABS: MEAN CORPUSCULAR HEMOGLOBIN 31.4 pg (27.5-34.5); MEAN CORPUSCULAR HGB CONC 32.4 g/dL (33.2-36.2); MEAN CORPUSCULAR VOLUME 96.8 fL (81-97); MEAN PLATELET VOLUME 10.2 fL (7.4-10.4); PLATELET COUNT 286 x10^3/uL (130-400); RED CELL DISTRIBUTION WIDTH 14.3 % (9.4-14.8)
[2019-02-22 05:57] LABS: CHLORIDE 108 mmol/L (98-107)
[2019-02-22 06:06] LABS: ANION GAP 3 mmol/L (5-15); CALCIUM 9.1 mg/dL (8.5-10.1); CREATININE 0.71 mg/dL (0.7-1.3)
[2019-02-22 06:07] LABS: BASOPHILS # (AUTO) 0.02 x10^3/uL (0-0.1); BASOPHILS % (AUTO) 1 % (0-1); EOSINOPHILS # (AUTO) 0.36 x10^3/uL (0-0.4); EOSINOPHILS % (AUTO) 7 % (1-7); LYMPHOCYTES # (AUTO) 0.75 x10^3/uL (1-3.4); LYMPHOCYTES % (AUTO) 15 % (22-44); MD SCAN; MONOCYTES # (AUTO) 0.72 x10^3/uL (0.2-0.8); MONOCYTES % (AUTO) 14 % (2-9); NEUTROPHILS # (AUTO) 3.18 x10^3/uL (1.8-6.8); NEUTROPHILS % (AUTO) 63 % (42-75)
[2019-02-22] MEDS: FUROSEMIDE 40 MG/4 ML IV SCH (08:10)
[2019-02-22] MEDS: FAMOTIDINE 20 MG/2 ML IVPush SCH ×2 (08:10→21:12)
[2019-02-22] MEDS: THIAMINE 100MG TABLET GT SCH (08:10)
[2019-02-22] MEDS: TAMSULOSIN 0.4 MG CAP.ER.24H PO SCH (08:11)
[2019-02-22] MEDS: POTASSIUM CHLORIDE 10% 40 MEQ/30 ML UDC PO SCH ×2 (08:11→21:12)
[2019-02-22] MEDS: FOLIC ACID 1 MG TABLET PO SCH (08:11)
[2019-02-22] MEDS: SODIUM CHLORIDE FLUSH 10ML SYR IVF SCH ×2 (08:12→21:13)
[2019-02-22] MEDS: MULTIVIT-MINERALS/IRON ORAL SOL GT SCH (08:12)
[2019-02-22] MEDS ORDERED: FUROSEMIDE 40 MG/4 ML IV ONE (08:30)
[2019-02-22] MEDS: ENOXAPARIN 40 MG/0.4 ML SQ SCH (08:55)
[2019-02-22] MEDS ORDERED: CATHFLO-ALTEPLASE 2 MG/2 ML CATHFLUSH ONE (13:30)
[2019-02-22] MEDS: ACETAMINOPHEN 325 MG TABLET PO PRN (14:40)
[2019-02-22] MEDS: VANCOMYCIN 2,300 MG in SODIUM CHLORIDE 0.9% 500 ML IV SCH (16:03)
[2019-02-22] MEDS ORDERED: ASPIRIN 81 MG TABLET CHEW ONE (16:07)
[2019-02-22] MEDS ORDERED: METOPROLOL 1 MG/ML, 5ML ONE (16:17)
[2019-02-22] MEDS ORDERED: METOPROLOL 1 MG/ML, 5ML IVPush STA (16:28)
[2019-02-22] MEDS ORDERED: ASPIRIN 81 MG TABLET CHEW PO ONE (16:30)
[2019-02-22 16:33] LABS: TROPONIN I < 0.015 ng/mL (0.000-0.045)
[2019-02-22] MEDS: METOPROLOL TARTRATE 50 MG TABLET PO SCH (18:36)
[2019-02-22 22:03] LABS: TROPONIN I < 0.015 ng/mL (0.000-0.045)
[2019-02-23] MEDS: PIPERACILLIN/TAZO/PMX 3.375GM 50 ML IV SCH ×5 (00:02→23:56)
[2019-02-23] MEDS: METOPROLOL TARTRATE 50 MG TABLET PO SCH ×3 (01:27→18:00)
[2019-02-23 04:49] LABS: BASOPHILS # (AUTO) 0.02 x10^3/uL (0-0.1); BASOPHILS % (AUTO) 0 % (0-1); EOSINOPHILS # (AUTO) 0.45 x10^3/uL (0-0.4); EOSINOPHILS % (AUTO) 7 % (1-7); LYMPHOCYTES % (AUTO) 11 % (22-44); MD NO; MEAN CORPUSCULAR HEMOGLOBIN 31.3 pg (27.5-34.5); MEAN CORPUSCULAR HGB CONC 32.4 g/dL (33.2-36.2); MEAN CORPUSCULAR VOLUME 96.7 fL (81-97); MEAN PLATELET VOLUME 10.5 fL (7.4-10.4); MONOCYTES # (AUTO) 0.89 x10^3/uL (0.2-0.8); MONOCYTES % (AUTO) 14 % (2-9); NEUTROPHILS # (AUTO) 4.14 x10^3/uL (1.8-6.8); NEUTROPHILS % (AUTO) 67 % (42-75); PLATELET COUNT 275 x10^3/uL (130-400); RED BLOOD COUNT 3.54 x10^6/uL (4.38-5.82); RED CELL DISTRIBUTION WIDTH 14.3 % (9.4-14.8)
[2019-02-23 04:59] LABS: ANION GAP 4 mmol/L (5-15); CALCIUM 9.1 mg/dL (8.5-10.1); CHLORIDE 108 mmol/L (98-107)
[2019-02-23 05:04] LABS: CREATININE 0.74 mg/dL (0.7-1.3); TRIGLYCERIDES 179 mg/dL (50-200); TROPONIN I < 0.015 ng/mL (0.000-0.045)
[2019-02-23] MEDS ORDERED: POTASSIUM CHLORIDE 10% 40 MEQ/30 ML UDC PO ONE (06:30)
[2019-02-23] MEDS ORDERED: ETOMIDATE 20 MG/10 ML ONE (08:00)
[2019-02-23] MEDS ORDERED: PROPOFOL 100 ML IV ONE (08:00)
[2019-02-23] MEDS ORDERED: SUCCINYLCHOLINE 20 MG/ML, 10ML ONE (08:00)
[2019-02-23] MEDS: FOLIC ACID 1 MG TABLET PO SCH (09:20)
[2019-02-23] MEDS: TAMSULOSIN 0.4 MG CAP.ER.24H PO SCH (09:21)
[2019-02-23] MEDS: FAMOTIDINE 20 MG/2 ML IVPush SCH ×2 (09:21→20:25)
[2019-02-23] MEDS: THIAMINE 100MG TABLET GT SCH (09:21)
[2019-02-23] MEDS: FUROSEMIDE 40 MG/4 ML IV SCH (09:21)
[2019-02-23] MEDS: MULTIVIT-MINERALS/IRON ORAL SOL GT SCH (09:22)
[2019-02-23] MEDS: SCOPOLAMINE PATCH, 1.5MG PATCH.TD72 TD SCH (10:28)
[2019-02-23] MEDS: ENOXAPARIN 40 MG/0.4 ML SQ SCH (10:28)
[2019-02-23] MEDS: VANCOMYCIN 2,300 MG in SODIUM CHLORIDE 0.9% 500 ML IV SCH (10:29)
[2019-02-23] MEDS: SODIUM CHLORIDE FLUSH 10ML SYR IVF SCH ×3 (10:44→21:00)
[2019-02-23] MEDS: POTASSIUM CHLORIDE 10% 40 MEQ/30 ML UDC PO SCH ×2 (18:00→20:25)
[2019-02-23] MEDS ORDERED: PHARMACY MAY ADJ FOR RENAL FX MC SCH (19:30)
[2019-02-23] MEDS ORDERED: LACTULOSE 20 GM/30 ML UDC NG PRN (19:30)
[2019-02-23] MEDS ORDERED: LIDOCAINE-MPF 1%, 2ML ENDO PRN (19:30)
[2019-02-23] MEDS ORDERED: GLUCAGON 1 MG IM PRN (19:30)
[2019-02-23] MEDS ORDERED: DEXTROSE 50%, 50ML SYRINGE IVPush PRN (19:30)
[2019-02-23] MEDS ORDERED: SENNA/DOCUSATE TABLET NG PRN (19:30)
[2019-02-23] MEDS ORDERED: SENNA 176 MG/5 ML ORAL SOL NG PRN (19:30)
[2019-02-23] MEDS ORDERED: DEXTROSE 4 GM TAB.CHEW PO PRN (19:30)
[2019-02-23] MEDS ORDERED: BISACODYL 10 MG SUPP PR PRN (19:30)
[2019-02-23] MEDS: OXYcodone 5 MG/5 ML ORAL.SOL UDC PO PRN (20:20)
[2019-02-23] MEDS: morphine SULFATE 10 MG/ML, 1ML IVPush PRN (23:16)
[2019-02-24] MEDS: METOPROLOL TARTRATE 50 MG TABLET PO SCH ×3 (01:34→17:46)
[2019-02-24 02:57] LABS: BASOPHILS # (AUTO) 0.05 x10^3/uL (0-0.1); BASOPHILS % (AUTO) 1 % (0-1); EOSINOPHILS # (AUTO) 0.35 x10^3/uL (0-0.4); EOSINOPHILS % (AUTO) 6 % (1-7); LYMPHOCYTES # (AUTO) 0.81 x10^3/uL (1-3.4); LYMPHOCYTES % (AUTO) 14 % (22-44); MD NO; MEAN CORPUSCULAR HEMOGLOBIN 31.4 pg (27.5-34.5); MEAN CORPUSCULAR HGB CONC 32.4 g/dL (33.2-36.2); MEAN CORPUSCULAR VOLUME 97.1 fL (81-97); MEAN PLATELET VOLUME 10.7 fL (7.4-10.4); MONOCYTES # (AUTO) 0.85 x10^3/uL (0.2-0.8); MONOCYTES % (AUTO) 15 % (2-9); NEUTROPHILS % (AUTO) 64 % (42-75); PLATELET COUNT 324 x10^3/uL (130-400); RED BLOOD COUNT 3.43 x10^6/uL (4.38-5.82); RED CELL DISTRIBUTION WIDTH 14.3 % (9.4-14.8)
[2019-02-24 03:12] LABS: ALANINE AMINOTRANSFERASE 160 U/L (12-78); ALBUMIN 2.6 g/dL (3.4-5.0); ANION GAP 4 mmol/L (5-15); CALCIUM 9.4 mg/dL (8.5-10.1); CHLORIDE 111 mmol/L (98-107); CREATININE 0.88 mg/dL (0.7-1.3)
[2019-02-24 03:14] LABS: ALKALINE PHOSPHATASE 95 U/L (45-117); BILIRUBIN,TOTAL 0.6 mg/dL (0.2-1.0); TOTAL PROTEIN 7.6 g/dL (6.4-8.2)
[2019-02-24] MEDS: VANCOMYCIN 2,300 MG in SODIUM CHLORIDE 0.9% 500 ML IV SCH ×2 (03:38→22:11)
[2019-02-24] MEDS: PIPERACILLIN/TAZO/PMX 3.375GM 50 ML IV SCH ×4 (06:04→23:57)
[2019-02-24] MEDS: FAMOTIDINE 20 MG/2 ML IVPush SCH ×2 (09:31→20:12)
[2019-02-24] MEDS: QUETIAPINE 25MG TABLET PO SCH ×3 (09:31→20:12)
[2019-02-24] MEDS: TAMSULOSIN 0.4 MG CAP.ER.24H PO SCH (09:31)
[2019-02-24] MEDS: POTASSIUM CHLORIDE 10% 40 MEQ/30 ML UDC PO SCH ×2 (09:32→20:12)
[2019-02-24] MEDS: THIAMINE 100MG TABLET GT SCH (09:32)
[2019-02-24] MEDS: ENOXAPARIN 40 MG/0.4 ML SQ SCH (09:32)
[2019-02-24] MEDS: FOLIC ACID 1 MG TABLET PO SCH (09:32)
[2019-02-24] MEDS: SODIUM CHLORIDE FLUSH 10ML SYR IVF SCH ×2 (09:33→20:12)
[2019-02-24] MEDS: MULTIVIT-MINERALS/IRON ORAL SOL GT SCH (09:35)
[2019-02-24] MEDS: ACETAMINOPHEN 325 MG TABLET PO PRN (18:57)
[2019-02-25] MEDS: METOPROLOL TARTRATE 50 MG TABLET PO SCH ×3 (02:15→17:20)
[2019-02-25 03:11] LABS: BASOPHILS % (AUTO) 0 % (0-1); EOSINOPHILS # (AUTO) 0.31 x10^3/uL (0-0.4); EOSINOPHILS % (AUTO) 6 % (1-7); LYMPHOCYTES # (AUTO) 0.75 x10^3/uL (1-3.4); LYMPHOCYTES % (AUTO) 15 % (22-44); MD NO; MEAN CORPUSCULAR HEMOGLOBIN 31.2 pg (27.5-34.5); MEAN CORPUSCULAR VOLUME 97.4 fL (81-97); MEAN PLATELET VOLUME 10.5 fL (7.4-10.4); MONOCYTES % (AUTO) 14 % (2-9); NEUTROPHILS # (AUTO) 3.22 x10^3/uL (1.8-6.8); NEUTROPHILS % (AUTO) 65 % (42-75); PLATELET COUNT 331 x10^3/uL (130-400); RED BLOOD COUNT 3.18 x10^6/uL (4.38-5.82); RED CELL DISTRIBUTION WIDTH 14.2 % (9.4-14.8)
[2019-02-25 03:55] LABS: ANION GAP 4 mmol/L (5-15); CHLORIDE 116 mmol/L (98-107); CREATININE 0.92 mg/dL (0.7-1.3)
[2019-02-25] MEDS: PIPERACILLIN/TAZO/PMX 3.375GM 50 ML IV SCH ×4 (05:52→23:56)
[2019-02-25] MEDS: ENOXAPARIN 40 MG/0.4 ML SQ SCH (09:39)
[2019-02-25] MEDS: TAMSULOSIN 0.4 MG CAP.ER.24H PO SCH (09:39)
[2019-02-25] MEDS: FAMOTIDINE 20 MG/2 ML IVPush SCH ×2 (09:39→20:18)
[2019-02-25] MEDS: FOLIC ACID 1 MG TABLET PO SCH (09:39)
[2019-02-25] MEDS: THIAMINE 100MG TABLET GT SCH (09:39)
[2019-02-25] MEDS: QUETIAPINE 25MG TABLET PO SCH ×3 (09:39→20:18)
[2019-02-25] MEDS: POTASSIUM CHLORIDE 10% 40 MEQ/30 ML UDC PO SCH ×2 (09:39→20:18)
[2019-02-25] MEDS: SODIUM CHLORIDE FLUSH 10ML SYR IVF SCH ×2 (09:40→20:18)
[2019-02-25] MEDS: MULTIVIT-MINERALS/IRON ORAL SOL GT SCH (09:45)
[2019-02-25] MEDS: FENTANYL PF 100 MCG/2ML IVPush PRN ×3 (11:34→19:12)
[2019-02-25] MEDS ORDERED: SUCCINYLCHOLINE 20 MG/ML, 10ML IVPush ONE (14:00)
[2019-02-25] MEDS ORDERED: ETOMIDATE 20 MG/10 ML IVPush ONE (14:00)
[2019-02-26] MEDS: METOPROLOL TARTRATE 50 MG TABLET PO SCH ×3 (01:21→18:51)
[2019-02-26] MEDS: PIPERACILLIN/TAZO/PMX 3.375GM 50 ML IV SCH ×4 (05:42→23:59)
[2019-02-26 05:57] LABS: BASOPHILS # (AUTO) 0.03 x10^3/uL (0-0.1); BASOPHILS % (AUTO) 1 % (0-1); EOSINOPHILS # (AUTO) 0.47 x10^3/uL (0-0.4); EOSINOPHILS % (AUTO) 8 % (1-7); LYMPHOCYTES # (AUTO) 0.74 x10^3/uL (1-3.4); LYMPHOCYTES % (AUTO) 13 % (22-44); MD NO; MEAN CORPUSCULAR HEMOGLOBIN 31.3 pg (27.5-34.5); MEAN CORPUSCULAR VOLUME 97.8 fL (81-97); MONOCYTES # (AUTO) 0.68 x10^3/uL (0.2-0.8); MONOCYTES % (AUTO) 12 % (2-9); NEUTROPHILS # (AUTO) 3.79 x10^3/uL (1.8-6.8); NEUTROPHILS % (AUTO) 66 % (42-75); PLATELET COUNT 336 x10^3/uL (130-400); RED BLOOD COUNT 3.41 x10^6/uL (4.38-5.82); RED CELL DISTRIBUTION WIDTH 14.3 % (9.4-14.8)
[2019-02-26 06:06] LABS: ANION GAP 3 mmol/L (5-15); CALCIUM 9.1 mg/dL (8.5-10.1); CHLORIDE 115 mmol/L (98-107); CREATININE 0.88 mg/dL (0.7-1.3); TRIGLYCERIDES 132 mg/dL (50-200)
[2019-02-26] MEDS: THIAMINE 100MG TABLET GT SCH (07:51)
[2019-02-26] MEDS: FAMOTIDINE 20 MG/2 ML IVPush SCH ×2 (07:52→20:39)
[2019-02-26] MEDS: QUETIAPINE 25MG TABLET PO SCH ×3 (07:52→20:39)
[2019-02-26] MEDS: FOLIC ACID 1 MG TABLET PO SCH (07:52)
[2019-02-26] MEDS: TAMSULOSIN 0.4 MG CAP.ER.24H PO SCH (07:52)
[2019-02-26] MEDS: ENOXAPARIN 40 MG/0.4 ML SQ SCH (07:53)
[2019-02-26] MEDS: MULTIVIT-MINERALS/IRON ORAL SOL GT SCH (07:58)
[2019-02-26] MEDS: SODIUM CHLORIDE FLUSH 10ML SYR IVF SCH ×2 (07:59→20:40)
[2019-02-26] MEDS: SCOPOLAMINE PATCH, 1.5MG PATCH.TD72 TD SCH (08:15)
[2019-02-26] MEDS: FENTANYL PF 100 MCG/2ML IVPush PRN ×2 (08:16→10:57)
[2019-02-26] MEDS: DEXMEDETOMIDINE 1,000 MCG in SODIUM CHLORIDE 0.9% 240 ML IV PRN (09:18)
[2019-02-26] MEDS ORDERED: MORPHINE SULFATE 4 MG/ML, 1ML ONE (10:04)
[2019-02-26] MEDS: morphine SULFATE 10 MG/ML, 1ML IVPush PRN (10:12)
[2019-02-26] MEDS ORDERED: ICN morphine 0.1 MG/ML IV IV PRN (10:30)
[2019-02-26] MEDS: KETOROLAC 30 MG/1 ML IVPush SCH ×3 (10:57→23:02)
[2019-02-27] MEDS: METOPROLOL TARTRATE 50 MG TABLET PO SCH ×3 (01:44→17:42)
[2019-02-27 03:22] LABS: BASOPHILS # (AUTO) 0.01 x10^3/uL (0-0.1); BASOPHILS % (AUTO) 0 % (0-1); EOSINOPHILS # (AUTO) 0.48 x10^3/uL (0-0.4); EOSINOPHILS % (AUTO) 11 % (1-7); LYMPHOCYTES # (AUTO) 0.64 x10^3/uL (1-3.4); LYMPHOCYTES % (AUTO) 15 % (22-44); MD NO; MEAN CORPUSCULAR HEMOGLOBIN 31.4 pg (27.5-34.5); MEAN CORPUSCULAR HGB CONC 32.3 g/dL (33.2-36.2); MEAN CORPUSCULAR VOLUME 97.4 fL (81-97); MEAN PLATELET VOLUME 10.6 fL (7.4-10.4); MONOCYTES # (AUTO) 0.49 x10^3/uL (0.2-0.8); MONOCYTES % (AUTO) 12 % (2-9); NEUTROPHILS # (AUTO) 2.59 x10^3/uL (1.8-6.8); NEUTROPHILS % (AUTO) 62 % (42-75); PLATELET COUNT 309 x10^3/uL (130-400)
[2019-02-27 03:24] LABS: ANION GAP 6 mmol/L (5-15); CALCIUM 8.5 mg/dL (8.5-10.1); CHLORIDE 111 mmol/L (98-107); CREATININE 1.04 mg/dL (0.7-1.3)
[2019-02-27] MEDS: KETOROLAC 30 MG/1 ML IVPush SCH ×4 (04:50→23:10)
[2019-02-27] MEDS: PIPERACILLIN/TAZO/PMX 3.375GM 50 ML IV SCH ×3 (05:51→17:43)
[2019-02-27] MEDS: MULTIVIT-MINERALS/IRON ORAL SOL GT SCH (08:15)
[2019-02-27] MEDS: ENOXAPARIN 40 MG/0.4 ML SQ SCH (08:15)
[2019-02-27] MEDS: TAMSULOSIN 0.4 MG CAP.ER.24H PO SCH (08:15)
[2019-02-27] MEDS: QUETIAPINE 25MG TABLET PO SCH ×3 (08:16→21:31)
[2019-02-27] MEDS: THIAMINE 100MG TABLET GT SCH (08:17)
[2019-02-27] MEDS: POTASSIUM CHLORIDE 10% 40 MEQ/30 ML UDC PO SCH ×2 (08:17→21:31)
[2019-02-27] MEDS: FAMOTIDINE 20 MG/2 ML IVPush SCH ×2 (08:17→21:31)
[2019-02-27] MEDS: FENTANYL PF 100 MCG/2ML IVPush PRN ×2 (08:30→11:23)
[2019-02-27] MEDS: FOLIC ACID 1 MG TABLET PO SCH (08:49)
[2019-02-28] MEDS: FENTANYL PF 100 MCG/2ML IVPush PRN (00:26)
[2019-02-28] MEDS: METOPROLOL TARTRATE 50 MG TABLET PO SCH (01:56)
[2019-02-28] MEDS: DEXMEDETOMIDINE 1,000 MCG in SODIUM CHLORIDE 0.9% 240 ML IV PRN ×2 (03:36→21:47)
[2019-02-28] MEDS: KETOROLAC 30 MG/1 ML IVPush SCH ×3 (04:50→17:44)
[2019-02-28 04:53] LABS: BASOPHILS # (AUTO) 0.01 x10^3/uL (0-0.1); BASOPHILS % (AUTO) 0 % (0-1); EOSINOPHILS # (AUTO) 0.46 x10^3/uL (0-0.4); EOSINOPHILS % (AUTO) 9 % (1-7); LYMPHOCYTES # (AUTO) 0.79 x10^3/uL (1-3.4); LYMPHOCYTES % (AUTO) 16 % (22-44); MD NO; MEAN CORPUSCULAR HEMOGLOBIN 31.3 pg (27.5-34.5); MEAN CORPUSCULAR HGB CONC 32.8 g/dL (33.2-36.2); MEAN CORPUSCULAR VOLUME 95.3 fL (81-97); MEAN PLATELET VOLUME 10.6 fL (7.4-10.4); MONOCYTES # (AUTO) 0.51 x10^3/uL (0.2-0.8); MONOCYTES % (AUTO) 10 % (2-9); NEUTROPHILS # (AUTO) 3.11 x10^3/uL (1.8-6.8); NEUTROPHILS % (AUTO) 64 % (42-75); PLATELET COUNT 327 x10^3/uL (130-400); RED BLOOD COUNT 3.47 x10^6/uL (4.38-5.82); RED CELL DISTRIBUTION WIDTH 13.8 % (9.4-14.8)
[2019-02-28 05:03] LABS: ANION GAP 2 mmol/L (5-15); CHLORIDE 113 mmol/L (98-107); CREATININE 0.95 mg/dL (0.7-1.3)
[2019-02-28 05:10] LABS: PREALBUMIN 27.7 mg/dL (20.0-40.0)
[2019-02-28] MEDS: PIPERACILLIN/TAZO/PMX 3.375GM 50 ML IV SCH ×4 (05:58→17:44)
[2019-02-28] MEDS: TAMSULOSIN 0.4 MG CAP.ER.24H PO SCH (08:52)
[2019-02-28] MEDS: FAMOTIDINE 20 MG/2 ML IVPush SCH ×2 (08:52→21:48)
[2019-02-28] MEDS: FOLIC ACID 1 MG TABLET PO SCH (08:52)
[2019-02-28] MEDS: QUETIAPINE 25MG TABLET PO SCH (08:52)
[2019-02-28] MEDS: THIAMINE 100MG TABLET GT SCH (08:52)
[2019-02-28] MEDS: ENOXAPARIN 40 MG/0.4 ML SQ SCH (08:53)
[2019-02-28] MEDS: MULTIVIT-MINERALS/IRON ORAL SOL GT SCH (08:54)
[2019-02-28] MEDS ORDERED: FUROSEMIDE 20 MG/2 ML IV ONE (10:00)
[2019-02-28] MEDS ORDERED: FENTANYL PF 100 MCG/2ML IVPush PRN (10:30)
[2019-02-28] MEDS ORDERED: QUETIAPINE 25MG TABLET PO PRN (14:00)
[2019-02-28] MEDS ORDERED: AMIODARONE 150 MG in DEXTROSE 5% 100 ML IV ONE (14:30)
[2019-02-28] MEDS ORDERED: FILTER 0.22 MICRON IV ONE (15:00)
[2019-02-28] MEDS: ZIPRASIDONE 20 MG INJ IM PRN (15:41)
[2019-03-01] MEDS: KETOROLAC 30 MG/1 ML IVPush SCH ×3 (00:02→11:31)
[2019-03-01] MEDS: PIPERACILLIN/TAZO/PMX 3.375GM 50 ML IV SCH ×5 (00:02→23:51)
[2019-03-01] MEDS: ZIPRASIDONE 20 MG INJ IM PRN (02:38)
[2019-03-01] MEDS: DEXMEDETOMIDINE 1,000 MCG in SODIUM CHLORIDE 0.9% 240 ML IV PRN ×2 (05:51→15:08)
[2019-03-01] MEDS: TAMSULOSIN 0.4 MG CAP.ER.24H PO SCH (08:56)
[2019-03-01] MEDS: FAMOTIDINE 20 MG/2 ML IVPush SCH ×2 (09:20→22:23)
[2019-03-01] MEDS: ENOXAPARIN 40 MG/0.4 ML SQ SCH (09:20)
[2019-03-01] MEDS: THIAMINE 100MG TABLET GT SCH (09:20)
[2019-03-01] MEDS: FOLIC ACID 1 MG TABLET PO SCH (09:20)
[2019-03-01] MEDS: MULTIVIT-MINERALS/IRON ORAL SOL GT SCH (09:21)
[2019-03-01 10:50] LABS: BASOPHILS # (AUTO) 0.01 x10^3/uL (0-0.1); BASOPHILS % (AUTO) 0 % (0-1); EOSINOPHILS # (AUTO) 0.45 x10^3/uL (0-0.4); EOSINOPHILS % (AUTO) 7 % (1-7); LYMPHOCYTES # (AUTO) 0.41 x10^3/uL (1-3.4); LYMPHOCYTES % (AUTO) 7 % (22-44); MD NO; MEAN CORPUSCULAR HEMOGLOBIN 30.2 pg (27.5-34.5); MEAN CORPUSCULAR VOLUME 94.4 fL (81-97); MEAN PLATELET VOLUME 10.2 fL (7.4-10.4); MONOCYTES # (AUTO) 0.52 x10^3/uL (0.2-0.8); MONOCYTES % (AUTO) 8 % (2-9); NEUTROPHILS # (AUTO) 4.86 x10^3/uL (1.8-6.8); NEUTROPHILS % (AUTO) 78 % (42-75); PLATELET COUNT 310 x10^3/uL (130-400); RED BLOOD COUNT 3.63 x10^6/uL (4.38-5.82); RED CELL DISTRIBUTION WIDTH 13.6 % (9.4-14.8)
[2019-03-01 11:00] LABS: ANION GAP 6 mmol/L (5-15); CALCIUM 8.8 mg/dL (8.5-10.1); CHLORIDE 111 mmol/L (98-107); CREATININE 0.85 mg/dL (0.7-1.3)
[2019-03-01] MEDS ORDERED: FENTANYL PF 100 MCG/2ML IVPush ONE (17:00)
[2019-03-01] MEDS ORDERED: PROPOFOL 100 ML IV ONE (17:03)
[2019-03-01] MEDS ORDERED: NOREPINEPHRINE 4 MG in SODIUM CHLORIDE 0.9% 246 ML IV PRN (17:10)
[2019-03-01] MEDS ORDERED: GLUCAGON 1 MG IM PRN (17:30)
[2019-03-01] MEDS ORDERED: SODIUM CHLORIDE 0.9%, 250ML IV ONE (17:30)
[2019-03-01] MEDS ORDERED: PHARMACY MAY ADJ FOR RENAL FX MC SCH (17:30)
[2019-03-01] MEDS ORDERED: DEXTROSE 50%, 50ML SYRINGE IVPush PRN (17:30)
[2019-03-01] MEDS ORDERED: LIDOCAINE-MPF 1%, 2ML ENDO PRN (17:30)
[2019-03-01] MEDS ORDERED: DEXTROSE 4 GM TAB.CHEW PO PRN (17:30)
[2019-03-01 18:27] LABS: INTERNATIONAL NORMALIZED RATIO 1.09 (0.93-1.1); PROTHROMBIN TIME 11.4 Seconds (9.6-11.5)
[2019-03-01] MEDS: ALBUTEROL/IPRATROPIUM 2.5MG/0.5MG, 3 ML INLINE SCH ×2 (19:00→23:50)
[2019-03-01] MEDS ORDERED: INSULIN LISPRO 100 UNITS/ML, PEN SQ-INSULIN SCH (21:00)
[2019-03-01] MEDS: SODIUM CHLORIDE FLUSH 10ML SYR IVF SCH (22:23)
[2019-03-01] MEDS: SCOPOLAMINE PATCH, 1.5MG PATCH.TD72 TD SCH (22:24)
[2019-03-01] MEDS ORDERED: SUCCINYLCHOLINE 20 MG/ML, 10ML IVPush ONE (23:10)
[2019-03-01] MEDS: PROPOFOL 100 ML IV PRN (23:51)
[2019-03-02] MEDS: ALBUTEROL/IPRATROPIUM 2.5MG/0.5MG, 3 ML INLINE SCH ×6 (02:36→22:27)
[2019-03-02] MEDS: PROPOFOL 100 ML IV PRN ×6 (03:25→20:24)
[2019-03-02] MEDS: INSULIN LISPRO 100 UNITS/ML, PEN SQ-INSULIN SCH ×4 (04:00→21:52)
[2019-03-02 04:47] LABS: INTERNATIONAL NORMALIZED RATIO 1.07 (0.93-1.1); PROTHROMBIN TIME 11.2 Seconds (9.6-11.5)
[2019-03-02 04:50] LABS: ALANINE AMINOTRANSFERASE 88 U/L (12-78); ALBUMIN 2.3 g/dL (3.4-5.0); ANION GAP 8 mmol/L (5-15); BASOPHILS # (AUTO) 0.01 x10^3/uL (0-0.1); BASOPHILS % (AUTO) 0 % (0-1); CALCIUM 8.9 mg/dL (8.5-10.1); CHLORIDE 110 mmol/L (98-107); CREATININE 0.82 mg/dL (0.7-1.3); EOSINOPHILS # (AUTO) 0.43 x10^3/uL (0-0.4); EOSINOPHILS % (AUTO) 10 % (1-7); LYMPHOCYTES # (AUTO) 0.67 x10^3/uL (1-3.4); LYMPHOCYTES % (AUTO) 16 % (22-44); MD NO; MEAN CORPUSCULAR HEMOGLOBIN 30.7 pg (27.5-34.5); MEAN CORPUSCULAR HGB CONC 32.4 g/dL (33.2-36.2); MEAN CORPUSCULAR VOLUME 94.9 fL (81-97); MEAN PLATELET VOLUME 10.2 fL (7.4-10.4); MONOCYTES # (AUTO) 0.49 x10^3/uL (0.2-0.8); MONOCYTES % (AUTO) 12 % (2-9); NEUTROPHILS # (AUTO) 2.54 x10^3/uL (1.8-6.8); NEUTROPHILS % (AUTO) 62 % (42-75); PLATELET COUNT 305 x10^3/uL (130-400); RED BLOOD COUNT 3.34 x10^6/uL (4.38-5.82); RED CELL DISTRIBUTION WIDTH 14.1 % (9.4-14.8)
[2019-03-02 04:53] LABS: ALKALINE PHOSPHATASE 84 U/L (45-117); BILIRUBIN,TOTAL 0.3 mg/dL (0.2-1.0); TOTAL PROTEIN 6.4 g/dL (6.4-8.2)
[2019-03-02] MEDS: PIPERACILLIN/TAZO/PMX 3.375GM 50 ML IV SCH ×3 (06:16→17:15)
[2019-03-02] MEDS ORDERED: DOXAZOSIN 2MG TABLET ONE (09:53)
[2019-03-02] MEDS: FAMOTIDINE 20 MG/2 ML IVPush SCH ×2 (10:00→21:52)
[2019-03-02] MEDS: POTASSIUM CHLORIDE 10% 40 MEQ/30 ML UDC PO SCH ×2 (10:00→21:52)
[2019-03-02] MEDS: SODIUM CHLORIDE FLUSH 10ML SYR IVF SCH ×2 (10:00→21:52)
[2019-03-02] MEDS: DOXAZOSIN 2MG TABLET PO SCH (10:01)
[2019-03-02] MEDS ORDERED: VECURONIUM 10 MG ONE (10:12)
[2019-03-02] MEDS ORDERED: MIDAZOLAM 1 MG/ML, 5ML ONE (14:17)
[2019-03-02] MEDS: FENTANYL PF 100 MCG/2ML IVPush PRN (14:20)
[2019-03-02] MEDS ORDERED: NOREPINEPHRINE 1 MG/ML, 4ML ONE (14:26)
[2019-03-02] MEDS ORDERED: VECURONIUM 10 MG IVPush ONE (15:00)
[2019-03-02] MEDS ORDERED: MIDAZOLAM 1 MG/ML, 5ML IVPush ONE (15:00)
[2019-03-02] MEDS: ENOXAPARIN 40 MG/0.4 ML SQ SCH (18:33)
[2019-03-02] MEDS: MULTIVIT-MINERALS/IRON ORAL SOL GT SCH (21:51)
[2019-03-03] MEDS: PIPERACILLIN/TAZO/PMX 3.375GM 50 ML IV SCH ×4 (00:26→18:04)
[2019-03-03] MEDS: PROPOFOL 100 ML IV PRN ×6 (00:28→18:25)
[2019-03-03] MEDS: ALBUTEROL/IPRATROPIUM 2.5MG/0.5MG, 3 ML INLINE SCH ×6 (02:31→22:46)
[2019-03-03] MEDS: INSULIN LISPRO 100 UNITS/ML, PEN SQ-INSULIN SCH ×4 (04:00→22:00)
[2019-03-03 04:24] LABS: BASOPHILS # (AUTO) 0.01 x10^3/uL (0-0.1); BASOPHILS % (AUTO) 0 % (0-1); EOSINOPHILS # (AUTO) 0.32 x10^3/uL (0-0.4); EOSINOPHILS % (AUTO) 7 % (1-7); LYMPHOCYTES # (AUTO) 0.52 x10^3/uL (1-3.4); LYMPHOCYTES % (AUTO) 11 % (22-44); MD NO; MEAN CORPUSCULAR HEMOGLOBIN 31.3 pg (27.5-34.5); MEAN CORPUSCULAR HGB CONC 33.4 g/dL (33.2-36.2); MEAN PLATELET VOLUME 9.9 fL (7.4-10.4); MONOCYTES # (AUTO) 0.48 x10^3/uL (0.2-0.8); MONOCYTES % (AUTO) 10 % (2-9); NEUTROPHILS # (AUTO) 3.35 x10^3/uL (1.8-6.8); NEUTROPHILS % (AUTO) 72 % (42-75); PLATELET COUNT 291 x10^3/uL (130-400); RED BLOOD COUNT 3.31 x10^6/uL (4.38-5.82); RED CELL DISTRIBUTION WIDTH 14.3 % (9.4-14.8)
[2019-03-03 04:36] LABS: ANION GAP 6 mmol/L (5-15); CALCIUM 8.9 mg/dL (8.5-10.1); CHLORIDE 111 mmol/L (98-107); CREATININE 0.89 mg/dL (0.7-1.3)
[2019-03-03] MEDS ORDERED: DOXAZOSIN 2MG TABLET PO SCH (09:00)
[2019-03-03] MEDS: MULTIVIT-MINERALS/IRON ORAL SOL GT SCH (09:06)
[2019-03-03] MEDS: SODIUM CHLORIDE FLUSH 10ML SYR IVF SCH ×2 (09:06→21:51)
[2019-03-03] MEDS: DOXAZOSIN 2MG TABLET PO SCH (09:06)
[2019-03-03] MEDS: PANTOPRAZOLE 40 MG IV IVPush SCH (09:06)
[2019-03-03] MEDS: FENTANYL PF 100 MCG/2ML IVPush PRN (09:58)
[2019-03-03] MEDS ORDERED: HYDROmorphone 2 MG/ML, 1ML IVPush PRN (10:00)
[2019-03-03] MEDS: ENOXAPARIN 40 MG/0.4 ML SQ SCH (21:00)
[2019-03-04] MEDS: PIPERACILLIN/TAZO/PMX 3.375GM 50 ML IV SCH ×4 (00:57→17:42)
[2019-03-04] MEDS: PROPOFOL 100 ML IV PRN ×6 (01:59→22:21)
[2019-03-04] MEDS: ALBUTEROL/IPRATROPIUM 2.5MG/0.5MG, 3 ML INLINE SCH ×6 (03:00→22:31)
[2019-03-04] MEDS: INSULIN LISPRO 100 UNITS/ML, PEN SQ-INSULIN SCH ×4 (04:00→22:00)
[2019-03-04 04:54] LABS: BASOPHILS # (AUTO) 0.01 x10^3/uL (0-0.1); BASOPHILS % (AUTO) 0 % (0-1); EOSINOPHILS # (AUTO) 0.46 x10^3/uL (0-0.4); EOSINOPHILS % (AUTO) 10 % (1-7); LYMPHOCYTES % (AUTO) 10 % (22-44); MD NO; MEAN CORPUSCULAR HEMOGLOBIN 31.1 pg (27.5-34.5); MEAN CORPUSCULAR HGB CONC 32.8 g/dL (33.2-36.2); MEAN CORPUSCULAR VOLUME 94.8 fL (81-97); MEAN PLATELET VOLUME 10.1 fL (7.4-10.4); MONOCYTES # (AUTO) 0.53 x10^3/uL (0.2-0.8); MONOCYTES % (AUTO) 11 % (2-9); NEUTROPHILS % (AUTO) 69 % (42-75); PLATELET COUNT 272 x10^3/uL (130-400); RED BLOOD COUNT 3.17 x10^6/uL (4.38-5.82); RED CELL DISTRIBUTION WIDTH 13.9 % (9.4-14.8)
[2019-03-04 04:56] LABS: ANION GAP 6 mmol/L (5-15); CALCIUM 8.6 mg/dL (8.5-10.1); CHLORIDE 109 mmol/L (98-107); TRIGLYCERIDES 147 mg/dL (50-200)
[2019-03-04] MEDS: PANTOPRAZOLE 40 MG IV IVPush SCH (05:14)
[2019-03-04] MEDS: QUETIAPINE 25MG TABLET PO SCH ×2 (09:01→17:42)
[2019-03-04] MEDS: DOXAZOSIN 2MG TABLET PO SCH (09:01)
[2019-03-04] MEDS: MULTIVIT-MINERALS/IRON ORAL SOL GT SCH (09:02)
[2019-03-04] MEDS: SODIUM CHLORIDE FLUSH 10ML SYR IVF SCH ×2 (09:02→22:12)
[2019-03-04] MEDS: ENOXAPARIN 40 MG/0.4 ML SQ SCH (21:00)
[2019-03-04] MEDS: SCOPOLAMINE PATCH, 1.5MG PATCH.TD72 TD SCH (22:10)
[2019-03-05] MEDS: PIPERACILLIN/TAZO/PMX 3.375GM 50 ML IV SCH ×4 (00:40→17:43)
[2019-03-05] MEDS: QUETIAPINE 25MG TABLET PO SCH ×3 (00:41→17:43)
[2019-03-05] MEDS: ALBUTEROL/IPRATROPIUM 2.5MG/0.5MG, 3 ML INLINE SCH ×6 (02:35→22:02)
[2019-03-05] MEDS: INSULIN LISPRO 100 UNITS/ML, PEN SQ-INSULIN SCH ×4 (04:00→21:59)
[2019-03-05 04:02] LABS: BASOPHILS # (AUTO) 0.01 x10^3/uL (0-0.1); BASOPHILS % (AUTO) 0 % (0-1); EOSINOPHILS # (AUTO) 0.57 x10^3/uL (0-0.4); EOSINOPHILS % (AUTO) 12 % (1-7); LYMPHOCYTES % (AUTO) 15 % (22-44); MD NO; MEAN CORPUSCULAR HGB CONC 32.3 g/dL (33.2-36.2); MEAN CORPUSCULAR VOLUME 95.9 fL (81-97); MEAN PLATELET VOLUME 10.1 fL (7.4-10.4); MONOCYTES # (AUTO) 0.66 x10^3/uL (0.2-0.8); MONOCYTES % (AUTO) 14 % (2-9); NEUTROPHILS # (AUTO) 2.85 x10^3/uL (1.8-6.8); NEUTROPHILS % (AUTO) 60 % (42-75); PLATELET COUNT 291 x10^3/uL (130-400); RED CELL DISTRIBUTION WIDTH 14.3 % (9.4-14.8)
[2019-03-05 04:15] LABS: ANION GAP 7 mmol/L (5-15); CALCIUM 9.3 mg/dL (8.5-10.1); CHLORIDE 108 mmol/L (98-107); CREATININE 0.67 mg/dL (0.7-1.3)
[2019-03-05] MEDS: PROPOFOL 100 ML IV PRN ×4 (04:52→18:49)
[2019-03-05] MEDS: PANTOPRAZOLE 40 MG IV IVPush SCH (05:21)
[2019-03-05] MEDS ORDERED: CEFAZOLIN PMX 1GM/50ML 50 ML IV ONE (09:33)
[2019-03-05] MEDS: FENTANYL PF 100 MCG/2ML IVPush PRN ×2 (10:29→13:01)
[2019-03-05] MEDS: DOXAZOSIN 2MG TABLET PO SCH (11:38)
[2019-03-05] MEDS: SODIUM CHLORIDE FLUSH 10ML SYR IVF SCH ×2 (11:38→21:58)
[2019-03-05] MEDS: MULTIVIT-MINERALS/IRON ORAL SOL GT SCH (11:39)
[2019-03-05] MEDS ORDERED: LABETALOL 5MG/ML, 20ML IVPush PRN (14:30)
[2019-03-05] MEDS ORDERED: AMLODIPINE 10 MG TAB ONE (14:32)
[2019-03-05] MEDS: AMLODIPINE 10 MG TAB PO SCH (14:34)
[2019-03-05] MEDS: ENOXAPARIN 40 MG/0.4 ML SQ SCH (21:59)
[2019-03-06] MEDS: QUETIAPINE 25MG TABLET PO SCH ×3 (00:22→20:33)
[2019-03-06] MEDS: PIPERACILLIN/TAZO/PMX 3.375GM 50 ML IV SCH ×5 (00:22→23:40)
[2019-03-06] MEDS: PROPOFOL 100 ML IV PRN ×3 (00:23→08:30)
[2019-03-06] MEDS: FENTANYL PF 100 MCG/2ML IVPush PRN (01:49)
[2019-03-06] MEDS: ALBUTEROL/IPRATROPIUM 2.5MG/0.5MG, 3 ML INLINE SCH ×6 (02:12→22:39)
[2019-03-06] MEDS: INSULIN LISPRO 100 UNITS/ML, PEN SQ-INSULIN SCH ×4 (04:00→22:00)
[2019-03-06 04:28] LABS: BASOPHILS # (AUTO) 0.01 x10^3/uL (0-0.1); BASOPHILS % (AUTO) 0 % (0-1); EOSINOPHILS % (AUTO) 12 % (1-7); LYMPHOCYTES # (AUTO) 0.49 x10^3/uL (1-3.4); LYMPHOCYTES % (AUTO) 12 % (22-44); MD NO; MEAN CORPUSCULAR HEMOGLOBIN 30.8 pg (27.5-34.5); MEAN CORPUSCULAR HGB CONC 32.2 g/dL (33.2-36.2); MEAN CORPUSCULAR VOLUME 95.7 fL (81-97); MEAN PLATELET VOLUME 10.5 fL (7.4-10.4); MONOCYTES # (AUTO) 0.54 x10^3/uL (0.2-0.8); MONOCYTES % (AUTO) 13 % (2-9); NEUTROPHILS % (AUTO) 62 % (42-75); PLATELET COUNT 261 x10^3/uL (130-400); RED BLOOD COUNT 3.41 x10^6/uL (4.38-5.82); RED CELL DISTRIBUTION WIDTH 13.9 % (9.4-14.8)
[2019-03-06 04:40] LABS: ANION GAP 6 mmol/L (5-15); CHLORIDE 107 mmol/L (98-107); CREATININE 0.64 mg/dL (0.7-1.3)
[2019-03-06] MEDS: PANTOPRAZOLE 40 MG IV IVPush SCH (06:02)
[2019-03-06] MEDS: SODIUM CHLORIDE FLUSH 10ML SYR IVF SCH ×2 (08:28→20:33)
[2019-03-06] MEDS: AMLODIPINE 10 MG TAB PO SCH (08:28)
[2019-03-06] MEDS: DOXAZOSIN 2MG TABLET PO SCH (08:28)
[2019-03-06] MEDS: MULTIVIT-MINERALS/IRON ORAL SOL GT SCH (08:31)
[2019-03-06] MEDS: DEXMEDETOMIDINE 200 MCG in SODIUM CHLORIDE 0.9% 48 ML IV PRN ×3 (11:41→20:44)
[2019-03-06] MEDS: ENOXAPARIN 40 MG/0.4 ML SQ SCH (20:32)
[2019-03-07] MEDS: DEXMEDETOMIDINE 200 MCG in SODIUM CHLORIDE 0.9% 48 ML IV PRN ×2 (00:52→10:39)
[2019-03-07] MEDS: ALBUTEROL/IPRATROPIUM 2.5MG/0.5MG, 3 ML INLINE SCH ×6 (03:18→23:00)
[2019-03-07] MEDS: INSULIN LISPRO 100 UNITS/ML, PEN SQ-INSULIN SCH ×4 (04:00→23:25)
[2019-03-07 04:39] LABS: BASOPHILS # (AUTO) 0.02 x10^3/uL (0-0.1); BASOPHILS % (AUTO) 1 % (0-1); EOSINOPHILS # (AUTO) 0.49 x10^3/uL (0-0.4); EOSINOPHILS % (AUTO) 14 % (1-7); LYMPHOCYTES # (AUTO) 0.54 x10^3/uL (1-3.4); LYMPHOCYTES % (AUTO) 15 % (22-44); MD NO; MEAN CORPUSCULAR HGB CONC 32.4 g/dL (33.2-36.2); MEAN CORPUSCULAR VOLUME 95.7 fL (81-97); MEAN PLATELET VOLUME 9.9 fL (7.4-10.4); MONOCYTES # (AUTO) 0.43 x10^3/uL (0.2-0.8); MONOCYTES % (AUTO) 12 % (2-9); NEUTROPHILS # (AUTO) 2.17 x10^3/uL (1.8-6.8); NEUTROPHILS % (AUTO) 59 % (42-75); PLATELET COUNT 243 x10^3/uL (130-400); RED BLOOD COUNT 3.19 x10^6/uL (4.38-5.82)
[2019-03-07 04:47] LABS: ANION GAP 4 mmol/L (5-15); CALCIUM 8.8 mg/dL (8.5-10.1); CHLORIDE 109 mmol/L (98-107); CREATININE 0.54 mg/dL (0.7-1.3); TRIGLYCERIDES 160 mg/dL (50-200)
[2019-03-07 04:51] LABS: PREALBUMIN 19.6 mg/dL (20.0-40.0)
[2019-03-07] MEDS: PIPERACILLIN/TAZO/PMX 3.375GM 50 ML IV SCH ×3 (05:34→17:58)
[2019-03-07] MEDS: PANTOPRAZOLE 40 MG IV IVPush SCH (06:05)
[2019-03-07] MEDS: MULTIVIT-MINERALS/IRON ORAL SOL GT SCH (08:34)
[2019-03-07] MEDS: SODIUM CHLORIDE FLUSH 10ML SYR IVF SCH ×2 (08:34→21:21)
[2019-03-07] MEDS: DOXAZOSIN 2MG TABLET PO SCH (08:34)
[2019-03-07] MEDS: QUETIAPINE 25MG TABLET PO SCH ×3 (08:46→21:23)
[2019-03-07] MEDS: AMLODIPINE 10 MG TAB PO SCH (08:46)
[2019-03-07] MEDS: DEXMEDETOMIDINE 1,000 MCG in SODIUM CHLORIDE 0.9% 240 ML IV PRN ×2 (12:51→19:05)
[2019-03-07] MEDS: FENTANYL PF 100 MCG/2ML IVPush PRN ×2 (17:18→19:05)
[2019-03-07] MEDS: ENOXAPARIN 40 MG/0.4 ML SQ SCH (19:33)
[2019-03-07] MEDS: SCOPOLAMINE PATCH, 1.5MG PATCH.TD72 TD SCH (22:13)
[2019-03-08] MEDS: PIPERACILLIN/TAZO/PMX 3.375GM 50 ML IV SCH ×4 (00:14→19:54)
[2019-03-08] MEDS: FENTANYL PF 100 MCG/2ML IVPush PRN ×5 (01:18→23:03)
[2019-03-08] MEDS: ALBUTEROL/IPRATROPIUM 2.5MG/0.5MG, 3 ML INLINE SCH ×6 (03:00→23:00)
[2019-03-08 05:07] LABS: BASOPHILS # (AUTO) 0.02 x10^3/uL (0-0.1); BASOPHILS % (AUTO) 1 % (0-1); EOSINOPHILS # (AUTO) 0.48 x10^3/uL (0-0.4); EOSINOPHILS % (AUTO) 11 % (1-7); LYMPHOCYTES # (AUTO) 0.63 x10^3/uL (1-3.4); LYMPHOCYTES % (AUTO) 14 % (22-44); MD NO; MEAN CORPUSCULAR HEMOGLOBIN 30.4 pg (27.5-34.5); MEAN CORPUSCULAR HGB CONC 32.4 g/dL (33.2-36.2); MEAN CORPUSCULAR VOLUME 93.9 fL (81-97); MEAN PLATELET VOLUME 9.9 fL (7.4-10.4); MONOCYTES # (AUTO) 0.48 x10^3/uL (0.2-0.8); MONOCYTES % (AUTO) 11 % (2-9); NEUTROPHILS # (AUTO) 2.88 x10^3/uL (1.8-6.8); NEUTROPHILS % (AUTO) 64 % (42-75); PLATELET COUNT 273 x10^3/uL (130-400); RED BLOOD COUNT 3.52 x10^6/uL (4.38-5.82)
[2019-03-08 05:12] LABS: ANION GAP 7 mmol/L (5-15); CHLORIDE 105 mmol/L (98-107); CREATININE 0.56 mg/dL (0.7-1.3)
[2019-03-08] MEDS: INSULIN LISPRO 100 UNITS/ML, PEN SQ-INSULIN SCH ×4 (05:16→23:41)
[2019-03-08] MEDS: DEXMEDETOMIDINE 1,000 MCG in SODIUM CHLORIDE 0.9% 240 ML IV PRN ×3 (05:43→21:28)
[2019-03-08] MEDS: PANTOPRAZOLE 40 MG IV IVPush SCH (05:50)
[2019-03-08] MEDS ORDERED: EPINEPHRINE 1 MG/ML, 1ML ONE (06:22)
[2019-03-08] MEDS ORDERED: BUPIVACAINE/PF 0.5% ONE ×2 (06:22→08:25)
[2019-03-08] MEDS ORDERED: MIDAZOLAM 1 MG/ML, 2ML ONE (06:23)
[2019-03-08] MEDS ORDERED: FENTANYL PF 250 MCG/5ML ONE ×2 (06:23→09:38)
[2019-03-08] MEDS ORDERED: PHENYLEPHRINE 10 MG/ML ONE (06:28)
[2019-03-08] MEDS ORDERED: GLYCOPYRROLATE 0.2MG/1ML, 5ML ONE (07:58)
[2019-03-08] MEDS ORDERED: NEOSTIGMINE 1 MG/ML, 10ML ONE (07:58)
[2019-03-08] MEDS ORDERED: ROCURONIUM 10 MG/ML,10ML ONE (07:58)
[2019-03-08] MEDS ORDERED: CEFAZOLIN 1,000 MG ONE ×6 (08:11→10:32)
[2019-03-08] MEDS: AMLODIPINE 10 MG TAB PO SCH (09:00)
[2019-03-08] MEDS: QUETIAPINE 25MG TABLET PO SCH ×3 (09:00→21:33)
[2019-03-08] MEDS: MULTIVIT-MINERALS/IRON ORAL SOL GT SCH (09:00)
[2019-03-08] MEDS: SODIUM CHLORIDE FLUSH 10ML SYR IVF SCH ×2 (09:00→21:33)
[2019-03-08] MEDS: DOXAZOSIN 2MG TABLET PO SCH (09:00)
[2019-03-08] MEDS ORDERED: ENALAPRILAT 1.25 MG/ML, 1ML IV PRN (09:30)
[2019-03-08] MEDS: CEFAZOLIN 2,000 MG in SODIUM CHLORIDE 0.9% 50 ML IV SCH ×2 (12:29→19:34)
[2019-03-08] MEDS: ENOXAPARIN 40 MG/0.4 ML SQ SCH (21:32)
[2019-03-09] MEDS: ALBUTEROL/IPRATROPIUM 2.5MG/0.5MG, 3 ML INLINE SCH ×3 (01:36→10:20)
[2019-03-09] MEDS: PIPERACILLIN/TAZO/PMX 3.375GM 50 ML IV SCH ×2 (01:38→08:27)
[2019-03-09] MEDS: FENTANYL PF 100 MCG/2ML IVPush PRN ×5 (02:05→14:14)
[2019-03-09] MEDS: CEFAZOLIN 2,000 MG in SODIUM CHLORIDE 0.9% 50 ML IV SCH (03:00)
[2019-03-09] MEDS: DEXMEDETOMIDINE 1,000 MCG in SODIUM CHLORIDE 0.9% 240 ML IV PRN ×2 (03:45→10:42)
[2019-03-09] MEDS: INSULIN LISPRO 100 UNITS/ML, PEN SQ-INSULIN SCH ×2 (05:14→12:25)
[2019-03-09 05:26] LABS: BASOPHILS # (AUTO) 0.01 x10^3/uL (0-0.1); BASOPHILS % (AUTO) 0 % (0-1); EOSINOPHILS % (AUTO) 7 % (1-7); LYMPHOCYTES # (AUTO) 0.61 x10^3/uL (1-3.4); LYMPHOCYTES % (AUTO) 11 % (22-44); MD NO; MEAN CORPUSCULAR HEMOGLOBIN 30.7 pg (27.5-34.5); MEAN CORPUSCULAR HGB CONC 32.6 g/dL (33.2-36.2); MEAN CORPUSCULAR VOLUME 94.2 fL (81-97); MEAN PLATELET VOLUME 9.8 fL (7.4-10.4); MONOCYTES # (AUTO) 0.66 x10^3/uL (0.2-0.8); MONOCYTES % (AUTO) 12 % (2-9); NEUTROPHILS # (AUTO) 4.04 x10^3/uL (1.8-6.8); NEUTROPHILS % (AUTO) 71 % (42-75); PLATELET COUNT 256 x10^3/uL (130-400); RED BLOOD COUNT 3.58 x10^6/uL (4.38-5.82); RED CELL DISTRIBUTION WIDTH 13.2 % (9.4-14.8)
[2019-03-09 05:39] LABS: ANION GAP 5 mmol/L (5-15); CALCIUM 9.1 mg/dL (8.5-10.1); CHLORIDE 104 mmol/L (98-107)
[2019-03-09] MEDS: PANTOPRAZOLE 40 MG IV IVPush SCH (05:48)
[2019-03-09] MEDS: DOXAZOSIN 2MG TABLET PO SCH (08:27)
[2019-03-09] MEDS: QUETIAPINE 25MG TABLET PO SCH (08:27)
[2019-03-09] MEDS: MULTIVIT-MINERALS/IRON ORAL SOL GT SCH (08:27)
[2019-03-09] MEDS: AMLODIPINE 10 MG TAB PO SCH (08:28)
[2019-03-09] MEDS: SODIUM CHLORIDE FLUSH 10ML SYR IVF SCH (08:28)
[2019-03-09] MEDS ORDERED: MAGNESIUM SULFATE PMX 2GM/50ML 50 ML IV ONE (09:30)
[2019-03-09] MEDS: POTASSIUM CHLORIDE 10% 40 MEQ/30 ML UDC NG SCH ×2 (09:30→12:23)
[2019-03-09] MEDS ORDERED: ENOX40SY4 SQ (09:54)
[2019-03-09] MEDS ORDERED: ENAL1.2513 IV (09:54)
[2019-03-09] MEDS ORDERED: AMLO10TA8 PO (09:54)
[2019-03-09] MEDS ORDERED: PIPE3.375 IV (09:54)
[2019-03-09] MEDS ORDERED: MULT9LIQ10 GT (09:54)
[2019-03-09] MEDS ORDERED: ACET325T26 PO (09:54)
[2019-03-09] MEDS ORDERED: INSU100I11 SQ-INSULIN (09:54)
[2019-03-09] MEDS ORDERED: [UNRECOGNIZED DRUG - CODE] IV (09:54)
[2019-03-09] MEDS ORDERED: PANT40VI IVPush (09:54)
[2019-03-09] MEDS ORDERED: QUET25TA7 PO (09:54)
[2019-03-09] MEDS ORDERED: DOXA2TAB9 PO (09:54)
[2019-03-09] MEDS ORDERED: PROP10VI IV (09:54)
[2019-03-09] MEDS ORDERED: ONDA4VIA60 IVPush (09:54)
[2019-03-09] MEDS ORDERED: FENT50VI28 IVPush (09:54)
[2019-03-09] MEDS ORDERED: HYDR2VIA2 IVPush (09:54)
[2019-03-09] MEDS ORDERED: IPRA3AMP30 INLINE (09:54)
[2019-03-09] MEDS ORDERED: LABE5VIA13 IVPush (09:54)
[2019-03-09] MEDS ORDERED: SCOP1PAT11 TD (09:54)
== END 2019-03-09 15:04 | DRG 463 ==
LOC: ED 16:44 → EDIP 16:45 → ED 17:19 → 4NE 18:40 → CCU 02-11 00:10 → ICU 03-07 07:08
PROVIDERS: ADMIT Internal Medicine; ATTEND Internal Medicine
PROC: 0JBG0ZZ Excision of Right Lower Arm Subcutaneous Tissue and Fascia, Open Approach (ICD-10-PCS; principal; 2019-02-10 21:00)
PROC: 02HV33Z Insertion of Infusion Device into Superior Vena Cava, Percutaneous Approach (ICD-10-PCS; 2019-02-11)
PROC: B548ZZA Ultrasonography of Superior Vena Cava, Guidance (ICD-10-PCS; 2019-02-11)
PROC: 5A1955Z Respiratory Ventilation, Greater than 96 Consecutive Hours (ICD-10-PCS; 2019-02-11)
PROC: 0BH17EZ Insertion of Endotracheal Airway into Trachea, Via Natural or Artificial Opening (ICD-10-PCS; 2019-02-11)
PROC: 0PSH04Z Reposition Right Radius with Internal Fixation Device, Open Approach (ICD-10-PCS; 2019-02-19)
PROC: 0PSK04Z Reposition Right Ulna with Internal Fixation Device, Open Approach (ICD-10-PCS; 2019-02-19)
PROC: 0MB30ZZ Excision of Right Elbow Bursa and Ligament, Open Approach (ICD-10-PCS; 2019-02-19)
PROC: 0JB73ZX Excision of Back Subcutaneous Tissue and Fascia, Percutaneous Approach, Diagnostic (ICD-10-PCS; 2019-02-21)
PROC: 0B9B8ZZ Drainage of Left Lower Lobe Bronchus, Via Natural or Artificial Opening Endoscopic (ICD-10-PCS; 2019-03-02)
PROC: 0DH63UZ Insertion of Feeding Device into Stomach, Percutaneous Approach (ICD-10-PCS; 2019-03-05)
PROC: 0PW Upper Bones, Revision (ICD-10-PCS; 2019-03-08)
PROC: 0D964ZZ Drainage of Stomach, Percutaneous Endoscopic Approach (ICD-10-PCS; 2019-03-08)
DX: S52.601B Unspecified fracture of lower end of right ulna, initial encounter for open fracture type I or II (principal); G93.41 Metabolic encephalopathy; J18.9 Pneumonia, unspecified organism; J96.01 Acute respiratory failure with hypoxia; S22.081A Stable burst fracture of T11-T12 vertebra, initial encounter for closed fracture; S22.42XA Multiple fractures of ribs, left side, initial encounter for closed fracture; F10.239 Alcohol dependence with withdrawal, unspecified; I47.1 Supraventricular tachycardia; I50.32 Chronic diastolic (congestive) heart failure; J98.11 Atelectasis; R57.9 Shock, unspecified; Z99.11 Dependence on respirator [ventilator] status; S52.509 Unspecified fracture of the lower end of unspecified radius; D53.9 Nutritional anemia, unspecified; S52.201B Unspecified fracture of shaft of right ulna, initial encounter for open fracture type I or II; S52.501A Unspecified fracture of the lower end of right radius, initial encounter for closed fracture; D72.819 Decreased white blood cell count, unspecified; D75.89 Other specified diseases of blood and blood-forming organs; E66.9 Obesity, unspecified; E87.6 Hypokalemia; G62.9 Polyneuropathy, unspecified; I11.0 Hypertensive heart disease with heart failure; I44.7 Left bundle-branch block, unspecified; I71.2 Thoracic aortic aneurysm, without rupture; I73.9 Peripheral vascular disease, unspecified; K70.9 Alcoholic liver disease, unspecified; K76.0 Fatty (change of) liver, not elsewhere classified; S41.111A Laceration without foreign body of right upper arm, initial encounter; S52.021A Displaced fracture of olecranon process without intraarticular extension of right ulna, initial encounter for closed fracture; M81.0 Age-related osteoporosis without current pathological fracture; Z96.642 Presence of left artificial hip joint; N40.0 Benign prostatic hyperplasia without lower urinary tract symptoms; Z51.5 Encounter for palliative care; Z66 Do not resuscitate; Z79.01 Long term (current) use of anticoagulants; Z87.891 Personal history of nicotine dependence; Z93.0 Tracheostomy status; W18.39XA Other fall on same level, initial encounter; Y93.89 Activity, other specified; Y92.89 Other specified places as the place of occurrence of the external cause; Y99.8 Other external cause status
CPT/HCPCS: 36415; 36600; 73070; 73080; 73100; 73110; 74018; 76000; 84145; 96365; 96375; 99285; J3490; J7620; S0020; 31622; 31624; 36573; 62267; 71045; 71275; 72128; 72157; 77012; 80048; 80053; 80202; 82040; 82140; 82607; 82803; 82962; 83605; 83735; 84100; 84134; 84443; 84478; 84484; 84550; 85025; 85610; 85730; 87015; 87040; 87070; 87075; 87077; 87081; 87102; 87116; 87147; 87186; 87205; 87206; 88305; 88307; 88311; 88341; 88342; 93005; 93308; 94002; 94003; 94150; 94640; A9575; B4087; C1713; G0378; J0171; J0690; J1100; J1170; J1650; J1885; J1940; J2250; J2405; J2543; J2704; J2710; J2997; J3010; J3360; J3370; J3411; J3475; J3480; J3486; Q9967; C1751; C8924; C9113; J0330; J1580; J2270; J2370; J2765; J7030; J7040; J7050